=== PATIENT | female | born 1930 | race Caucasian/White ===

== ENCOUNTER → 2016-08-01 | Outpatient (CLI) | payer MEDICARE ==
--- NOTE | 2016-08-02 11:11 | XR ---
EXAMINATION TYPE: XR hand complete LT DATE OF EXAM: 08/01/2016 1:19 PM COMPARISON: NONE HISTORY: Pain and swelling FINDINGS: The osseous structures are intact. Diffuse osteopenia noted with severe arthritic change involving th e first carpal metacarpal joint. Chondrocalcinosis involving the wrist joint. Marked narrowing of the MCP joints of all digits, PIP and DIP joints of all digits with multiple area s of central erosion. IMPRESSION: 1. No definite acute fracture or dislocation if symptoms persist, follow-up study in 7 to 10 days wo uld be suggested. 2. 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
== END | disposition home or self-care (01) ==
LOC: RADXRYALE 12:15
PROVIDERS: ATTEND Family Medicine
DX: M79.642 Pain in left hand (principal)

== ENCOUNTER 2016-08-14 14:14 | Emergency (ER) | payer MEDICARE ==
[2016-08-14 14:25] VITALS: BP 177/62; PULSE 77; RESP 17; TEMP 98.9
[2016-08-14] MEDS ORDERED: SODIUM CHLORIDE 0.9% 500 ML IV ONE (14:58)
[2016-08-14 15:19] LABS: Basophils % (A) 0 %; CH 27.7; CHCM 32.7; Eosinophils # (A) 0.1 k/uL (0-0.7); Eosinophils % (A) 1 %; HCT 34.4 % (34.0-46.0); HDW 2.74; HGB 11.2 gm/dL (11.4-16.0); Luc # (Auto) 0.12; Luc % (Auto) 1; Lymphocytes # (A) 0.9 k/uL (1.0-4.8); Lymphocytes % (A) 8 %; MCH 27.7 pg (25.0-35.0); MCHC 32.5 g/dL (31.0-37.0); MCV 85.3 fL (80.0-100.0); Mean Platelet Volume 7.9; Monocytes # (A) 0.5 k/uL (0-1.0); Monocytes % (A) 5 %; Neutrophils # (A) 9.3 k/uL (1.3-7.7); Neutrophils % (A) 85 %; RBC 4.03 m/uL (3.80-5.40); RDW 13.8 % (11.5-15.5); WBC 10.9 k/uL (3.8-10.6); WBC (Perox) 11.52
--- NOTE | 2016-08-14 15:29 | ED ---
General Adult HPI - General Chief complaint: Fall Stated complaint: Fall, weakness Time Seen by Provider: 08/14/16 14:15 Source: patient, EMS, RN notes reviewed Mode of arrival: EMS Limitations: no limitations - History of Present Illness Initial comments: This is an 85-year-old female presents after a fall last night and this morning. Patient's daughter is present in the room today and states the patient is legally blind and ambulates without a walker. Patient is able to answer questions and denies any dizziness associated with the falls. Patient states she was standing up from sitting both times the falls occurred and she is unsure what caused the fall. Patient denies hitting her head but is unsure. Patient is currently on Plavix. Patient is complaining of an exacerbation of chronic knee pain bilaterally. Patient also complains of increased chronic back pain after the falls. Patient states she landed on her butt both times but denies any change in bowel or bladder function or loss of sensation in the saddle area. Patient's daughter states she has frequent UTIs and the patient is complaining of burning with urination that started today. Patient is on a daily antibiotic for prophylaxis of UTIs. Patient's daughter denies any history of falls. Daughter states the only medication change is an increase of the patient's [place] from 2 to 3 times a day. Patient denies any recent fever, chills, shortness breath, chest pain, abdominal pain, nausea/vomiting/diarrhea, hematuria, headache, or visual changes, or any other complaints. - Related Data Home Medications Medication Instructions Recorded Confirmed Allopurinol [Zyloprim] 100 mg PO DAILY 08/14/16 08/14/16 Chlorpheniramine Maleate 4 mg PO Q4-6H PRN 08/14/16 08/14/16 [Chlor-Trimeton] Ciprofloxacin HCl [Cipro] 500 mg PO DAILY 08/14/16 08/14/16 Clopidogrel [Plavix] 75 mg PO DAILY 08/14/16 08/14/16 Dorzolamide-Timolol 2%/0.5% 1 drop BOTH EYES BID 08/14/16 08/14/16 [dorzolamide-Timolol 2%/0.5%] Famotidine 20 mg PO BID 08/14/16 08/14/16 HYDROcodone/APAP 5-325MG [[place] 1 tab PO TID 08/14/16 08/14/16 5-325] Latanoprost [Xalatan 0.005%] 1 drop BOTH EYES HS 08/14/16 08/14/16 Levothyroxine Sodium [Synthroid] 50 mcg PO DAILY 08/14/16 08/14/16 Pravastatin Sodium [Pravachol] 40 mg PO DAILY 08/14/16 08/14/16 Primidone [Mysoline] 50 mg PO HS 08/14/16 08/14/16 amLODIPine [Norvasc] 5 mg PO DAILY 08/14/16 08/14/16 Previous Rx's Medication Instructions Recorded Nitrofurantoin Monohyd/M-Cryst 100 mg PO Q12HR 7 Days 08/14/16 [Macrobid] Allergies Allergy/AdvReac Type Severity Reaction Status Date / Time cefuroxime [From Ceftin] Allergy Unknown Verified 08/14/16 16:26 clarithromycin [From Biaxin] Allergy Unknown Verified 08/14/16 16:26 sulfamethoxazole Allergy Unknown Verified 08/14/16 16:26 [From Bactrim] trimethoprim [From Bactrim] Allergy Unknown Verified 08/14/16 16:26 Review of Systems ROS Statement: Those systems with pertinent positive or pertinent negative responses have been documented in the HPI. ROS Other: All systems not noted in ROS Statement are negative. Past Medical History Past Medical History: COPD, CVA/TIA, Hyperlipidemia, Hypertension, Thyroid Disorder Additional Past Medical History / Comment(s): legally blind History of Any Multi-Drug Resistant Organisms: None Reported Past Surgical History: Bowel Resection, Hysterectomy Past Psychological History: No Psychological Hx Reported Smoking Status: Never smoker Past Alcohol Use History: None Reported Past Drug Use History: None Reported General Exam - General Exam Comments Initial Comments: General: The patient is awake and alert, in no distress, and does not appear acutely ill. Eye: Patient is legally blind. Pupils are equal, round and reactive to light, extra-ocular movements are intact. No nystagmus. There is normal conjunctiva bilaterally. No signs of icterus. Nose: Nasal turbinates pink and moist Mouth and throat: There are moist mucous membranes and no oral lesions. Neck: The neck is supple, there is no tenderness or JVD. No cervical midline tenderness. Cardiovascular: There is a regular rate and rhythm. No murmur, rub or gallop is appreciated. Respiratory: Lungs are clear to auscultation, respirations are non-labored, breath sounds are equal. No wheezes, stridor, rales, or rhonchi. Gastrointestinal: Mild tenderness to palpation of the lower quadrants. Soft, non-distended, abdomen without masses or organomegaly noted. There is no rebound or guarding present. No CVA tenderness. Bowel sounds are unremarkable. Musculoskeletal: There is tenderness to palpation over the right proximal forearm and right elbow, there is tenderness to palpation over the left mid shaft humerus. There is tenderness to palpation of bilateral knees. There is mild tenderness to the lumbar spine. Full range of motion, Strength 5/5. Sensation intact. Radial pulses and posterior tibial Pulses equal bilaterally 2 +. Neurological: A&O x 3. CN II-XII intact, There are no obvious motor or sensory deficits. Coordination appears grossly intact. Speech is normal. Skin: There is ecchymosis to the lateral aspect of the right elbow. Skin is warm and dry. Psychiatric: Cooperative, appropriate mood & affect, normal judgment. Limitations: no limitations Course Vital Signs 08/14/16 14:17 Temperature 98.9 F Pulse Rate 77 Respiratory 17 Rate Blood Pressure 177/62 O2 Sat by Pulse 94 L Oximetry EKG Findings - EKG Comments: EKG Findings:: An EKG was done at 1515 showing normal sinus rhythm with a ventricular rate of 73, AL interval of 164, QRS duration of 88, QTc of 416. No acute ST changes. Medical Decision Making - Medical Decision Making This is an 85-year-old female who presents after a fall. On physical exam There is tenderness to palpation over the right proximal forearm and right elbow , there is tenderness to palpation over the left mid shaft humerus. There is tenderness to palpation of bilateral knees. There is mild tenderness to the lumbar spine. Full range of motion, Strength 5/5. Sensation intact. Radial pulses and posterior tibial Pulses equal bilaterally 2+. Patient is neurologically intact and answering all questions appropriately. Basic labs were drawn and reviewed. Patient was given IV fluids. UA was done showing evidence for UTI and patient is symptomatic. An EKG was done at 1515 showing normal sinus rhythm with a ventricular rate of 73, AL interval of 164, QRS duration of 88, QTc of 416. No acute ST changes. Computed tomography scan of the brain was done and reviewed showing: No acute intracranial abnormality seen. Stable moderate cerebral atrophy. Severe confluent changes of chronic small vessel ischemic disease with old left parietal lobe infarct. A left frontal lobe infarct is also chronic but new from 2015. Reported by Dr. Dey. X-rays of the right elbow, left humerus, bilateral knees and lumbar spine were done and reviewed showing:#1 lumbar spine: Osteopenia limiting evaluation. There is also a degenerated levoconvex scoliosis. Vertebral compression deformity of L3 is age indeterminant (approximately 30% overall height loss) but could be acute in the setting of patient's injury. Correlate for focal pain at this level. #2 knees: Diffuse osteopenia limiting the evaluation. There is tricompartmental osteoarthrosis and meniscal chondrocalcinosis. Small right greater than the left knee joint effusions are nonspecific. No displaced fracture seen. If concern for an occult injury or internal derangement, MRI can be considered. Reports read by Dr. Dey. #1 left humerus: No acute osseous abnormality seen. #2 right elbow suboptimal positioning on both the AP and lateral views. No acute osseous abnormality seen within this limitation. Repeat imaging if persistent concern for underlying injury. Reports her to Dr. Dey. I reexamined the patient and patient is having continued mild abdominal pain to the lower quadrants with palpation. CT of the abdomen and pelvis without contrast was done and reviewed showing: There is colonic diverticulosis without evidence of diverticulitis. Renal cortical cysts. Mild renal atrophy. Atherosclerotic vascular disease. Patchy atelectasis at the lung bases. Mild L3 compression fracture of uncertain age. Mild thoracolumbar levoscoliosis. Report by Dr. Wyatt. Patient is having no pain to the lumbar spine upon reevaluation and has a history of injury to the back any years ago. I discussed the results with patient and family. I discussed occult fracture. Patient will be treated for urinary tract infection with Macrobid as she is having burning with urination. Patient was able to ambulate in the EC without difficulty. I discussed use of a walker at home and patient has a walker at home. I discussed return parameters. I discussed the patient is to follow-up with her primary care physician tomorrow or return to the EC for any worsening symptoms or for any further concerns. Patient's family was receptive to this plan and patient will be discharged home. Discussed this case with attending physician Dr. Minaya who agrees with plan as stated above. - Lab Data Result diagrams: 08/14/16 15:07 08/14/16 15:07 Lab Results 08/14/16 08/14/16 08/14/16 Range/Units 15:07 15:07 15:07 WBC 10.9 H (3.8-10.6) k/uL RBC 4.03 (3.80-5.40) m/uL Hgb 11.2 L (11.4-16.0) gm/dL Hct 34.4 (34.0-46.0) % MCV 85.3 (80.0-100.0) fL MCH 27.7 (25.0-35.0) pg MCHC 32.5 (31.0-37.0) g/dL RDW 13.8 (11.5-15.5) % Plt Count 182 (150-450) k/uL Neutrophils % 85 % Lymphocytes % 8 % Monocytes % 5 % Eosinophils % 1 % Basophils % 0 % Neutrophils # 9.3 H (1.3-7.7) k/uL Lymphocytes # 0.9 L (1.0-4.8) k/uL Monocytes # 0.5 (0-1.0) k/uL Eosinophils # 0.1 (0-0.7) k/uL Basophils # 0.0 (0-0.2) k/uL PT (9.0-12.0) sec INR (<1.1) APTT (22.0-30.0) sec Sodium 137 (137-145) mmol/L Potassium 5.2 H (3.5-5.1) mmol/L Chloride 106 (98-107) mmol/L Carbon Dioxide 17 L (22-30) mmol/L Anion Gap 14 mmol/L BUN 35 H (7-17) mg/dL Creatinine 1.73 H (0.52-1.04) mg/dL Est GFR (MDRD) Af Amer 34 (>60 ml/min/1.73 sqM) Est GFR (MDRD) Non-Af 28 (>60 ml/min/1.73 sqM) Glucose 88 (74-99) mg/dL Calcium 8.7 (8.4-10.2) mg/dL Total Bilirubin 0.8 (0.2-1.3) mg/dL AST 24 (14-36) U/L ALT 21 (9-52) U/L Alkaline Phosphatase 68 (38-126) U/L Total Creatine Kinase 27 L (30-135) U/L CK-MB (CK-2) 1.0 (0.0-2.4) ng/mL CK-MB (CK-2) Rel Index 3.7 Troponin I (0.000-0.034) ng/mL Total Protein 6.7 (6.3-8.2) g/dL Albumin 3.4 L (3.5-5.0) g/dL Urine Color Urine Appearance (Clear) Urine pH (5.0-8.0) Ur Specific [place] (1.001-1.035) Urine Protein (Negative) Urine Glucose (UA) (Negative) Urine Ketones (Negative) Urine Blood (Negative) Urine Nitrate (Negative) Urine Bilirubin (Negative) Urine Urobilinogen (<2.0) mg/dL Ur Leukocyte Esterase (Negative) Urine RBC (0-5) /hpf Urine WBC (0-5) /hpf Ur Squamous Epith Cells (0-4) /hpf Urine Mucus (None) /hpf 08/14/16 08/14/16 08/14/16 Range/Units 15:07 15:07 15:33 WBC (3.8-10.6) k/uL RBC (3.80-5.40) m/uL Hgb (11.4-16.0) gm/dL Hct (34.0-46.0) % MCV (80.0-100.0) fL MCH (25.0-35.0) pg MCHC (31.0-37.0) g/dL RDW (11.5-15.5) % Plt Count (150-450) k/uL Neutrophils % % Lymphocytes % % Monocytes % % Eosinophils % % Basophils % % Neutrophils # (1.3-7.7) k/uL Lymphocytes # (1.0-4.8) k/uL Monocytes # (0-1.0) k/uL Eosinophils # (0-0.7) k/uL Basophils # (0-0.2) k/uL PT 10.5 (9.0-12.0) sec INR 1.0 (<1.1) APTT 23.1 (22.0-30.0) sec Sodium (137-145) mmol/L Potassium (3.5-5.1) mmol/L Chloride (98-107) mmol/L Carbon Dioxide (22-30) mmol/L Anion Gap mmol/L BUN (7-17) mg/dL Creatinine (0.52-1.04) mg/dL Est GFR (MDRD) Af Amer (>60 ml/min/1.73 sqM) Est GFR (MDRD) Non-Af (>60 ml/min/1.73 sqM) Glucose (74-99) mg/dL Calcium (8.4-10.2) mg/dL Total Bilirubin (0.2-1.3) mg/dL AST (14-36) U/L ALT (9-52) U/L Alkaline Phosphatase (38-126) U/L Total Creatine Kinase (30-135) U/L CK-MB (CK-2) (0.0-2.4) ng/mL CK-MB (CK-2) Rel Index Troponin I <0.012 (0.000-0.034) ng/mL Total Protein (6.3-8.2) g/dL Albumin (3.5-5.0) g/dL Urine Color Yellow Urine Appearance Clear (Clear) Urine pH 6.5 (5.0-8.0) Ur Specific [place] 1.011 (1.001-1.035) Urine Protein Trace H (Negative) Urine Glucose (UA) Negative (Negative) Urine Ketones Negative (Negative) Urine Blood Moderate H (Negative) Urine Nitrate Negative (Negative) Urine Bilirubin Negative (Negative) Urine Urobilinogen <2.0 (<2.0) mg/dL Ur Leukocyte Esterase Trace H (Negative) Urine RBC >182 H (0-5) /hpf Urine WBC 18 H (0-5) /hpf Ur Squamous Epith Cells 1 (0-4) /hpf Urine Mucus Rare H (None) /hpf Disposition Clinical Impression: Urinary tract infection, Fall Disposition: HOME SELF-CARE Condition: Good Instructions: Fall Prevention for Older Adults (ED), Urinary Tract Infection in Women (ED) Additional Instructions: Please finish the entire course of antibiotics. Please be sure the patient drinks plenty of fluids. If symptoms do not improve in the next 7 days repeat x- rays may be needed to rule out occult fracture. Please follow-up with primary care physician tomorrow or return to the EC for any worsening symptoms or for any further concerns. Prescriptions: Nitrofurantoin Monohyd/M-Cryst [Macrobid] 100 mg PO Q12HR 7 Days Referrals: Prakash Adkins DO [Primary Care Provider] - 1-2 days Time of Disposition: 18:35
[2016-08-14 15:33] LABS: Partial Thromboplastin Time 23.1 sec (22.0-30.0); Prothrombin Time 10.5 sec (9.0-12.0)
[2016-08-14 15:36] LABS: Calcium 8.7 mg/dL (8.4-10.2); Potassium 5.2 mmol/L (3.5-5.1); Total Bilirubin 0.8 mg/dL (0.2-1.3); Total Protein 6.7 g/dL (6.3-8.2)
[2016-08-14 15:51] LABS: Appearance,Urine Clear (Clear); Bilirubin,Urine Negative (Negative); Glucose,Urine (UA) Negative (Negative); Ketones,Urine Negative (Negative); Leukocyte Esterase,Urine Trace (Negative); Mucus,Urine Rare /hpf; Nitrite,Urine Negative (Negative); PH, Urine 6.5 (5.0-8.0); Particle Count 1562; Protein,Urine Trace (Negative); RBC,Urine >182 /hpf (0-5); Specific Gravity,Urine 1.011 (1.001-1.035); Squamous Epithelial Cell,Urine 1 /hpf (0-4); UA Billing (MACRO vs. MICRO) MICRO; Urobilinogen,Urine <2.0 mg/dL (<2.0); WBC,Urine 18 /hpf (0-5)
--- NOTE | 2016-08-14 16:35 | XR ---
EXAMINATION TYPE: 3 views lumbar spine. 3 views each knee. DATE OF EXAM: 08/14/2016 4:12 PM COMPARISON: NONE HISTORY: 85-year-old female generalized low back pain after fall and bilateral knee pain. FINDINGS: Lumbar spine: Degenerated levoconvex scoliosis of the lumbar spine. There is osteopenia limiting evaluation. There appears to be a vertebral compression deformity of L3 with approximately 30% overall height los s. There is slight retropulsion into the spinal canal. Trace grade 1 anterolisthesis at L4-L5. Hypert rophic facet arthropathy throughout. Dense atherosclerotic calcifications within the aorta. Knees: Diffuse osteopenia. Tricompartmental degenerative spurring with meniscal chondrocalcinosis. Extensor mechanisms appear intact. There is suggestion of a small right knee joint effusion. Trace left knee j oint effusion also suggested. No acute fracture or dislocation seen. Diffuse vascular calcifications. IMPRESSION: 1. Lumbar spine: Marked osteopenia limiting the evaluation. There is also a degenerated levoconvex sc oliosis. Vertebral compression deformity of L3 is age indeterminate (approximately 30% overall height loss) but could be acute in the setting of patient's injury. Correlate for focal pain at this level. 2. Knees: Diffuse osteopenia limiting the evaluation. There is tricompartmental osteoarthrosis and me niscal chondrocalcinosis. Small right greater than the left knee joint effusions are nonspecific. No displaced fracture seen. If concern for an occult injury or internal derangement, MRI can be consider ed.
--- NOTE | 2016-08-14 16:37 | XR ---
EXAMINATION TYPE: 2 views left humerus. 3 views right elbow. DATE OF EXAM: 08/14/2016 4:14 PM COMPARISON: NONE HISTORY: 85-year-old female with generalized pain after multiple falls FINDINGS: Left humerus: Bony irregularity at the greater tuberosity compatible with chronic rotator cuff tendinopathy. There is degenerative change at the AC joint and some synovial-based calcifications. No acute fracture. Right elbow: Suboptimal AP view. Bony irregularity at the lateral epicondyles suggest chronic extensor tendinosis. Suboptimal lateral view for assessment of posterior joint effusion. No acute fracture or dislocation seen. IMPRESSION: 1. Left humerus: No acute osseous abnormality seen. 2. Right elbow: Suboptimal positioning on both the AP and lateral views. No acute osseous abnormality seen within this limitation. Repeat imaging if persistent concern for underlying injury.
--- NOTE | 2016-08-14 16:54 | CT ---
EXAMINATION TYPE: CT brain wo con DATE OF EXAM: 08/14/2016 4:37 PM COMPARISON: 05/09/2015 HISTORY: 85-year-old female with a pain after recent fall and injuries. TECHNIQUE: Examination was done in axial plane without intravenous contrast. Coronal and sagittal r econstructions performed. CT DLP: 975.6 mGycm Automated exposure control for dose reduction was used. FINDINGS: There is no evidence of acute intracranial hemorrhage, acute ischemic changes, mass, mass-effect, or extra-axial fluid collection. There is no effacement of cerebral sulci or basal subarachnoid cister ns. There is no midline shift. Cutler-white matter distinction is preserved. There is mild generalized supratentorial volume loss and moderate central cerebral atrophy. Redemonst rated previous left parietal infarct. A posterior left frontal lobe infarct is new from 2014. Conflue nt white matter hypodensities in both cerebral hemispheres. Partially empty sella incidentally noted . Visualized paranasal sinuses and mastoid air cells are well pneumatized. No calvarial fracture. IMPRESSION: No acute intracranial abnormality seen. Stable moderate cerebral atrophy. Severe confluent changes of chronic small vessel ischemic disease with old left parietal lobe infarct. A left frontal lobe infar ct is also chronic but new from 2014.
--- NOTE | 2016-08-14 18:04 | CT ---
EXAMINATION TYPE: CT abdomen pelvis wo con DATE OF EXAM: 08/14/2016 5:52 PM COMPARISON: NONE HISTORY: Lower back pain after fall. CT DLP: 822.00 mGycm Automated exposure control for dose reduction was used. TECHNIQUE: Helical acquisition of images was performed from the lung bases through the pelvis. FINDINGS: There is some patchy linear density at the lung bases. This is consistent with subsegmental atelectas is. There is no pleural effusion. Heart is enlarged. There is no pericardial effusion. Liver shows no focal defect. Bile ducts are not dilated. I see no gallbladder wall thickening. Spleen and pancreas appear normal. There is athetoid vascular calcification. There is no adrenal mass. There is a 3 cm cortical cyst on the posterior right kidney. There is no de finite hydronephrosis. Ureters are not dilated. There is mild renal cortical thinning. There is a 2.5 cm cortical cyst on the medial right kidney. There is no retroperitoneal adenopathy. There is no asc ites. There are numerous diverticula in the left colon. There is no sign of a bowel obstruction. Blad navi distends smoothly. There is no pelvic mass. There is 15% anterior wedging of L3 vertebral body. IMPRESSION: THERE IS COLONIC DIVERTICULOSIS WITHOUT EVIDENCE OF DIVERTICULITIS. RENAL CORTICAL CYSTS. MILD RENAL ATROPHY. ATHEROSCLEROTIC VASCULAR DISEASE. PATCHY ATELECTASIS AT THE LUNG BASES. MILD L3 COMPRESSION FRACTURE OF UNCERTAIN AGE. MILD THORACOLUMBAR LEVOSCOLIOSIS.
[2016-08-14] MEDS ORDERED: HYDROcodone/APAP 5-325MG 1 EACH TAB PO STA (18:35)
== END 2016-08-14 18:52 | disposition home or self-care (01) ==
LOC: EC 14:14
DX: N39.0 Urinary tract infection, site not specified (principal); G89.29 Other chronic pain; M25.562 Pain in left knee; M25.561 Pain in right knee; E07.9 Disorder of thyroid, unspecified; I10 Essential (primary) hypertension; E78.5 Hyperlipidemia, unspecified; M48.56XA Collapsed vertebra, not elsewhere classified, lumbar region, initial encounter for fracture; H54.8 Legal blindness, as defined in USA; Z86.73 Personal history of transient ischemic attack (TIA), and cerebral infarction without residual deficits; Z87.440 Personal history of urinary (tract) infections; Z79.02 Long term (current) use of antithrombotics/antiplatelets; Z79.01 Long term (current) use of anticoagulants; Z79.2 Long term (current) use of antibiotics; Z79.891 Long term (current) use of opiate analgesic; Z79.899 Other long term (current) drug therapy; Z88.1 Allergy status to other antibiotic agents; Z88.2 Allergy status to sulfonamides
CPT/HCPCS: 36415; 70450; 72100; 74176; 80053; 81001; 82550; 82553; 84484; 85025; 85610; 85730; 87086; 93005; 96360; 99285

== ENCOUNTER → 2017-03-29 | Outpatient (CLI) | payer MEDICARE ==
--- NOTE | 2017-03-29 12:22 | XR ---
Thoracic spine HISTORY: Pain 2 views of the thoracic spine Bone mineralization is reduced which may limit sensitivity. There is multilevel spondylosis with asso ciated loss of disc height especially at the intervertebral levels of the midthoracic spine. Frontal view is rotated, there may be spinal curvature. Thoracic vertebral bodies show preserved height and a lignment. There is a kyphosis. IMPRESSION: Osteoporosis, degenerative disc disease, rotated exam
== END | disposition home or self-care (01) ==
LOC: RADXRYALE 11:48
PROVIDERS: ATTEND Family Medicine
DX: M51.34 Other intervertebral disc degeneration, thoracic region (principal); M81.8 Other osteoporosis without current pathological fracture
CPT/HCPCS: 72070

== ENCOUNTER 2018-04-10 20:07 | Inpatient (IN) | payer MEDICARE ==
[2018-04-10] MEDS ORDERED: ONDANSETRON 4 MG/2 ML VIAL IVP STA (20:43)
[2018-04-10] MEDS ORDERED: MORPHINE SULFATE 2 MG/ML SYRINGE IVP STA (20:43)
[2018-04-10] MEDS ORDERED: SODIUM CHLORIDE 0.9% 500 ML 500 ML IV STA (20:43)
--- NOTE | 2018-04-10 20:49 | ED ---
Fall HPI - General Chief Complaint: Fall Stated Complaint: weakness Time Seen by Provider: 04/10/18 20:30 Source: EMS Mode of arrival: EMS - History of Present Illness Initial Comments: 87-year-old female patient presents to the emergency department today with daughter for evaluation after experiencing a fall at home. Patient has history of dementia and daughter provides most of history. Daughter reports that patient has been falling more frequently. States that she is not eating or drinking as much. States that she has lost a lot of weight. After today's fall patient was unable to stand due to increased low back pain. Patient is also reporting neck pain. She denies any pain radiation down her arms or legs. Denies any numbness or tingling to her extremities. She denies any current headache. 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 Patient denies any nausea, vomiting, abdominal pain, constipation , or diarrhea. Patient denies any recent rash, fever, chills, shortness breath , chest pain, constipation, back pain, numbness, tingling, dizziness, weakness, headache, visual changes, or any other complaints. Patient was in to see her primary care physician a few days ago and diagnosed with a urinary tract infection for which they started antibiotics. - Related Data Home Medications Medication Instructions Recorded Confirmed Allopurinol [Zyloprim] 100 mg PO DAILY 08/14/16 04/10/18 Clopidogrel [Plavix] 75 mg PO DAILY 08/14/16 04/10/18 Dorzolamide-Timol 2.23%/0.68% 1 drop BOTH EYES BID 08/14/16 04/10/18 [dorzolamide-Timolol 2%/0.5%] Famotidine 20 mg PO BID 08/14/16 04/10/18 HYDROcodone/APAP 5-325MG [[place] 1 tab PO BID 08/14/16 04/10/18 5-325] Latanoprost [Xalatan 0.005%] 1 drop BOTH EYES HS 08/14/16 04/10/18 Levothyroxine Sodium [Synthroid] 50 mcg PO DAILY 08/14/16 04/10/18 Pravastatin Sodium [Pravachol] 40 mg PO DAILY 08/14/16 04/10/18 Primidone [Mysoline] 50 mg PO HS 08/14/16 04/10/18 amLODIPine [Norvasc] 5 mg PO DAILY 08/14/16 04/10/18 Amoxic-Pot Clav 500-125 mg 1 tab PO Q12HR 04/10/18 04/10/18 [Augmentin 500-125 mg] Propylene Glycol [Systane Complete] 1 drop BOTH EYES DAILY PRN 04/10/18 04/10/18 Allergies Allergy/AdvReac Type Severity Reaction Status Date / Time cefuroxime [From Ceftin] Allergy Unknown Verified 04/10/18 20:34 clarithromycin [From Biaxin] Allergy Unknown Verified 04/10/18 20:34 sulfamethoxazole Allergy Unknown Verified 04/10/18 20:34 [From Bactrim] trimethoprim [From Bactrim] Allergy Unknown Verified 04/10/18 20:34 Review of Systems ROS Statement: Those systems with pertinent positive or pertinent negative responses have been documented in the HPI. ROS Other: All systems not noted in ROS Statement are negative. Past Medical History Past Medical History: COPD, CVA/TIA, Hyperlipidemia, Hypertension, Thyroid Disorder Additional Past Medical History / Comment(s): legally blind History of Any Multi-Drug Resistant Organisms: None Reported Past Surgical History: Bowel Resection, Hysterectomy Past Psychological History: No Psychological Hx Reported Smoking Status: Never smoker Past Alcohol Use History: None Reported Past Drug Use History: None Reported General Exam Limitations: no limitations General appearance: alert, in no apparent distress, other (This is a well- developed, well-nourished elderly female patient in no acute distress. Vital signs upon presentation are temperature 97.6F, pulse 105, respirations 16, blood pressure 166/91, pulse ox 99% on room air.) Eye exam: Present: normal appearance, PERRL. Absent: scleral icterus, conjunctival injection, periorbital swelling ENT exam: Present: normal exam, normal oropharynx, mucous membranes moist Neck exam: Present: normal inspection, other (Patient has mid line cervical tenderness over C4-5.). Absent: tenderness, meningismus, full ROM (C-collar in place), lymphadenopathy Respiratory exam: Present: normal lung sounds bilaterally. Absent: respiratory distress, wheezes, rales, rhonchi, stridor Cardiovascular Exam: Present: regular rate, normal rhythm, normal heart sounds. Absent: systolic murmur, diastolic murmur, rubs, gallop, clicks GI/Abdominal exam: Present: soft, normal bowel sounds. Absent: distended, tenderness, guarding, rebound, rigid Extremities exam: Present: normal inspection, full ROM, tenderness (Left lateral hip tenderness. Mid low back pain over the lumbar spine. ), normal capillary refill, other (Skin to the upper and lower extremities is pink, warm, and dry. Cap refills less than 3 seconds. Radial pulses 2+ and equal bilaterally. Pedal pulses 2+ and equal bilaterally. ). Absent: pedal edema, joint swelling, calf tenderness Neurological exam: Present: alert, oriented X3, CN II-XII intact Psychiatric exam: Present: normal affect, normal mood Skin exam: Present: warm, dry, intact, normal color. Absent: rash Course Vital Signs 04/10/18 04/10/18 04/10/18 20:18 21:34 22:30 Temperature 97.6 F Pulse Rate 105 H 98 105 H Respiratory 16 Rate Blood Pressure 166/91 148/82 O2 Sat by Pulse 99 98 Oximetry Medical Decision Making - Medical Decision Making 87-year-old female patient presents to emergency department today for evaluation of frequent falls and weakness. Daughter also reports patient was complaining of chest pain 2 days ago. Patient denies chest pain today. Physical examination does reveal tenderness over the left hip, tenderness over the lumbar spine, and tenderness over the mid cervical spine. CT brain and C- spine were performed showed no evidence of acute abnormalities. X-ray of the left hip and pelvis were obtained and showed no acute fractures or dislocations. X-ray of the lumbar spine did show evidence of old compression fractures however there was an 25% increase of the wedging of the L2 vertebra. Patient did exhibit normal neurovascular status to the lower extremities. Denied any radiating pain down the legs, loss of bowel or bladder control, or numbness or tingling to the lower extremities. Labs reviewed and did reveal an elevated BUN and creatinine which does seem to be chronic for the patient. Troponin was elevated at 0.052, urinalysis shows evidence of urinary tract infection currently being treated with oral antibiotics. Patient is afebrile, vital signs stable. EKG showed normal sinus rhythm. We will keep patient for possible NSTEMI, dehydration, and weakness. We will start heparin drip and maintain IV fluids. We will continue patient's augmentin for UTI, continue home pain medication. - Lab Data Result diagrams: 04/10/18 21:31 04/10/18 21:31 Lab Results 04/10/18 04/10/18 04/10/18 Range/Units 21:31 21:31 21:31 WBC 10.3 (3.8-10.6) k/uL RBC 4.22 (3.80-5.40) m/uL Hgb 12.0 (11.4-16.0) gm/dL Hct 37.7 (34.0-46.0) % MCV 89.2 (80.0-100.0) fL MCH 28.4 (25.0-35.0) pg MCHC 31.9 (31.0-37.0) g/dL RDW 14.3 (11.5-15.5) % Plt Count 196 (150-450) k/uL Neutrophils % 82 % Lymphocytes % 11 % Monocytes % 5 % Eosinophils % 0 % Basophils % 1 % Neutrophils # 8.5 H (1.3-7.7) k/uL Lymphocytes # 1.2 (1.0-4.8) k/uL Monocytes # 0.5 (0-1.0) k/uL Eosinophils # 0.0 (0-0.7) k/uL Basophils # 0.1 (0-0.2) k/uL PT (9.0-12.0) sec INR (<1.2) APTT (22.0-30.0) sec Sodium 138 (137-145) mmol/L Potassium 5.0 (3.5-5.1) mmol/L Chloride 111 H (98-107) mmol/L Carbon Dioxide 17 L (22-30) mmol/L Anion Gap 10 mmol/L BUN 28 H (7-17) mg/dL Creatinine 1.46 H (0.52-1.04) mg/dL Est GFR (CKD-EPI)AfAm 38 (>60 ml/min/1.73 sqM) Est GFR (CKD-EPI)NonAf 33 (>60 ml/min/1.73 sqM) Glucose 110 H (74-99) mg/dL Calcium 9.1 (8.4-10.2) mg/dL Total Bilirubin 0.5 (0.2-1.3) mg/dL AST 22 (14-36) U/L ALT 16 (9-52) U/L Alkaline Phosphatase 72 (38-126) U/L Total Creatine Kinase 52 (30-135) U/L CK-MB (CK-2) 1.6 (0.0-2.4) ng/mL CK-MB (CK-2) Rel Index 3.1 Troponin I 0.052 H* (0.000-0.034) ng/mL Total Protein 7.3 (6.3-8.2) g/dL Albumin 3.9 (3.5-5.0) g/dL Urine Color Urine Appearance (Clear) Urine pH (5.0-8.0) Ur Specific [place] (1.001-1.035) Urine Protein (Negative) Urine Glucose (UA) (Negative) Urine Ketones (Negative) Urine Blood (Negative) Urine Nitrite (Negative) Urine Bilirubin (Negative) Urine Urobilinogen (<2.0) mg/dL Ur Leukocyte Esterase (Negative) Urine RBC (0-5) /hpf Urine WBC (0-5) /hpf Ur Squamous Epith Cells (0-4) /hpf Urine Mucus (None) /hpf 04/10/18 04/10/18 Range/Units 21:31 22:35 WBC (3.8-10.6) k/uL RBC (3.80-5.40) m/uL Hgb (11.4-16.0) gm/dL Hct (34.0-46.0) % MCV (80.0-100.0) fL MCH (25.0-35.0) pg MCHC (31.0-37.0) g/dL RDW (11.5-15.5) % Plt Count (150-450) k/uL Neutrophils % % Lymphocytes % % Monocytes % % Eosinophils % % Basophils % % Neutrophils # (1.3-7.7) k/uL Lymphocytes # (1.0-4.8) k/uL Monocytes # (0-1.0) k/uL Eosinophils # (0-0.7) k/uL Basophils # (0-0.2) k/uL PT 10.5 (9.0-12.0) sec INR 1.1 (<1.2) APTT 24.4 (22.0-30.0) sec Sodium (137-145) mmol/L Potassium (3.5-5.1) mmol/L Chloride (98-107) mmol/L Carbon Dioxide (22-30) mmol/L Anion Gap mmol/L BUN (7-17) mg/dL Creatinine (0.52-1.04) mg/dL Est GFR (CKD-EPI)AfAm (>60 ml/min/1.73 sqM) Est GFR (CKD-EPI)NonAf (>60 ml/min/1.73 sqM) Glucose (74-99) mg/dL Calcium (8.4-10.2) mg/dL Total Bilirubin (0.2-1.3) mg/dL AST (14-36) U/L ALT (9-52) U/L Alkaline Phosphatase (38-126) U/L Total Creatine Kinase (30-135) U/L CK-MB (CK-2) (0.0-2.4) ng/mL CK-MB (CK-2) Rel Index Troponin I (0.000-0.034) ng/mL Total Protein (6.3-8.2) g/dL Albumin (3.5-5.0) g/dL Urine Color Light Yellow Urine Appearance Clear (Clear) Urine pH 5.5 (5.0-8.0) Ur Specific [place] 1.009 (1.001-1.035) Urine Protein Negative (Negative) Urine Glucose (UA) Negative (Negative) Urine Ketones Negative (Negative) Urine Blood Moderate H (Negative) Urine Nitrite Negative (Negative) Urine Bilirubin Negative (Negative) Urine Urobilinogen <2.0 (<2.0) mg/dL Ur Leukocyte Esterase Small H (Negative) Urine RBC 94 H (0-5) /hpf Urine WBC 7 H (0-5) /hpf Ur Squamous Epith Cells <1 (0-4) /hpf Urine Mucus Rare H (None) /hpf - EKG Data -: EKG Interpreted by Me EKG Comments: EKG obtained at 2118 shows normal sinus rhythm with a ventricular rate of 96, TN interval 126, QRS duration 178, QT 342, QTc 432. No evidence of ST elevation or depression - Radiology Data Radiology results: report reviewed, image reviewed 5 views of the lumbosacral spine were obtained. There is thoracic or lumbar levoscoliosis. Abdominal aorta is atheromatous. There is generalized osteopenia. There is loss of height of L3 and L2 vertebra 25%. Posterior elements are intact. Sacroiliac joints are intact. Impression by Dr. Wyatt shows significant osteopenia. There is old L3 compression fracture unchanged. There is progression of the compression fracture of L2 of 25% compared to old exam. Single AP view of the pelvis and 2 views of the left hip are obtained. The pelvic ring is intact rate is osteopenia. Proximal left femur and hip joint appear intact. There is mild vascular calcification. Sacroiliac joints appear intact. Impression by Dr. Wyatt shows no acute abnormality of the pelvis and left hip. CT brain and C-spine are obtained. There is cerebral cortical atrophy. No mass effect or midline shift. There is no sign of intracranial hemorrhage. There is patchy hypodensity in the. Ventricular white matter. There is old left posterior parietal lobe 3 cm cortical infarct. The calvarium is intact. Cervical vertebra abnormal spacing alignment. Posterior elements are intact. There is minor facet arthropathy. Physical base is intact. There is no evidence of cervical spine fracture. Impression by Dr. Wyatt shows cerebral atrophy and chronic small vessel ischemia. Old left parietal cortical infarct. No change. Negative computed tomography scan of the cervical spine. No fracture. Two-view x-ray of the chest is obtained. There is mild linear density in the left lower lobe. The other lung ye are clear. Thoracic aorta is atheromatous. Heart size is normal. There is no pleural effusion. There is no heart failure. There is osteopenia. Impression by Dr. Wyatt shows scarring and subsegmental atelectasis in the left lower lobe. No heart failure. Disposition Clinical Impression: Weakness, Dehydration, Elevated troponin, Compression fracture of L2 Disposition: ADMITTED IP TO THIS [facility] Condition: Serious Decision to Admit Reason: Admit from EC Decision Date: 04/11/18 Decision Time: 01:19
[2018-04-10 22:01] LABS: Basophils # (A) 0.1 k/uL (0-0.2); Basophils % (A) 1 %; Eosinophils % (A) 0 %; HCT 37.7 % (34.0-46.0); Lymphocytes # (A) 1.2 k/uL (1.0-4.8); Lymphocytes % (A) 11 %; MCH 28.4 pg (25.0-35.0); MCHC 31.9 g/dL (31.0-37.0); MCV 89.2 fL (80.0-100.0); Mean Platelet Volume 7.2; Monocytes # (A) 0.5 k/uL (0-1.0); Monocytes % (A) 5 %; Neutrophils # (A) 8.5 k/uL (1.3-7.7); Neutrophils % (A) 82 %; Platelet Count 196 k/uL (150-450); RBC 4.22 m/uL (3.80-5.40); RDW 14.3 % (11.5-15.5); WBC 10.3 k/uL (3.8-10.6)
[2018-04-10 22:10] LABS: INR 1.1 (<1.2); Partial Thromboplastin Time 24.4 sec (22.0-30.0); Prothrombin Time 10.5 sec (9.0-12.0)
[2018-04-10 22:11] LABS: Albumin 3.9 g/dL (3.5-5.0); Calcium 9.1 mg/dL (8.4-10.2); Total Bilirubin 0.5 mg/dL (0.2-1.3); Total Protein 7.3 g/dL (6.3-8.2)
[2018-04-10 22:30] LABS: Creatine Kinase MB 1.6 ng/mL (0.0-2.4)
[2018-04-10 22:32] LABS: Troponin I 0.052 ng/mL (0.000-0.034)
--- NOTE | 2018-04-10 22:46 | CT ---
EXAMINATION TYPE: CT brain erick badillo DATE OF EXAM: 04/10/2018 COMPARISON: CT brain 08/14/2016 HISTORY: Fall. CT DLP: 1010.5 mGycm Automated exposure control for dose reduction was used. TECHNIQUE: CT scan of the head and cervical spine are performed without contrast. FINDINGS: There is cerebral cortical atrophy. There is no mass effect nor midline shift. There is n o sign of intracranial hemorrhage. There is patchy hypodensity in the periventricular white matter. T here is old left posterior parietal lobe 3 cm cortical infarct. The calvarium is intact. The cervical vertebra have normal spacing and alignment. Posterior elements are intact. There is armin r facet arthropathy. The skull base is intact. There is no evidence of cervical spine fracture. IMPRESSION: Cerebral atrophy and chronic small vessel ischemia. Old left parietal cortical infarct. No change. Negative CT scan cervical spine. No fracture.
[2018-04-10 22:54] LABS: Appearance,Urine Clear (Clear); Bilirubin,Urine Negative (Negative); Blood,Urine Moderate (Negative); Color,Urine Light Yellow; Glucose,Urine (UA) Negative (Negative); Ketones,Urine Negative (Negative); Leukocyte Esterase,Urine Small (Negative); Mucus,Urine Rare /hpf; Nitrite,Urine Negative (Negative); PH, Urine 5.5 (5.0-8.0); Protein,Urine Negative (Negative); RBC,Urine 94 /hpf (0-5); Specific Gravity,Urine 1.009 (1.001-1.035); Squamous Epithelial Cell,Urine <1 /hpf (0-4); Urobilinogen,Urine <2.0 mg/dL (<2.0); WBC,Urine 7 /hpf (0-5)
--- NOTE | 2018-04-10 23:27 | XR ---
EXAMINATION TYPE: XR chest 2V DATE OF EXAM: 04/10/2018 COMPARISON: NONE HISTORY: Weakness. Falls. TECHNIQUE: Frontal and lateral views of the chest are obtained. FINDINGS: There is mild linear density in the left lower lobe. The other lung ye are clear. Thor acic aorta is atheromatous. Heart size is normal. There is no pleural effusion. There is no heart gloria lure. There is osteopenia. IMPRESSION: There is scarring and subsegmental atelectasis in the left lower lobe. No heart failure.
--- NOTE | 2018-04-10 23:28 | XR ---
EXAMINATION TYPE: XR Hip LT and AP Pelvis DATE OF EXAM: 04/10/2018 COMPARISON: NONE HISTORY: Left hip pain TECHNIQUE: A single AP view of the pelvis is obtained. Two views of the left hip are obtained. FINDINGS: The pelvic ring is intact. There is osteopenia. Proximal left femur and hip joint appear in tact. There is mild vascular calcification. Sacroiliac joints appear intact. IMPRESSION: No acute abnormality of the pelvis and left hip.
--- NOTE | 2018-04-10 23:32 | XR ---
EXAMINATION TYPE: XR lumbosacral spine min 4V DATE OF EXAM: 04/10/2018 COMPARISON: 08/14/2016 HISTORY: Fall. Back pain TECHNIQUE: 5 views FINDINGS: There is thoracolumbar levoscoliosis. Abdominal aorta is atheromatous. There is generalized osteopenia. There is loss of height of L3 and L2 vertebra up to 25%. Posterior elements are intact. Sacroiliac joints are intact. IMPRESSION: Significant osteopenia. There is old L3 compression fracture unchanged. There is progress ion of the compression fracture of L2 of 25% compared to old exam.
[2018-04-11] MEDS ORDERED: HEPARIN SODIUM,PORCINE 5,000 UNIT/ML 1 ML VIAL IV ONE (00:26)
[2018-04-11] MEDS ORDERED: NITROGLYCERIN SL TABS 0.4 MG TAB SUBLINGUAL PRN (00:26)
[2018-04-11] MEDS: SODIUM CHLORIDE 0.9% 1,000 ML IV SCH ×2 (01:47→15:21)
[2018-04-11] MEDS: HEPARIN SOD,PORK IN 0.45% NACL 25,000 UNIT in 0.45% NACL 1 500ML.BAG IV SCH (01:49)
[2018-04-11] MEDS ORDERED: PROPYLENE GLYCOL BOTH EYES PRN (04:07)
[2018-04-11 04:33] LABS: Troponin I 0.06 ng/mL (0.000-0.034)
[2018-04-11] MEDS: HYDROcodone/APAP 5-325MG 1 EACH TAB PO PRN ×2 (07:31→15:13)
[2018-04-11] MEDS: LEVOTHYROXINE 50 MCG TAB PO SCH (07:51)
[2018-04-11] MEDS ORDERED: FAMOTIDINE 20 MG TAB PO SCH (09:00)
[2018-04-11] MEDS: ALLOPURINOL 100 MG TAB PO SCH (09:28)
[2018-04-11] MEDS: AMOXIC-POT CLAV 500-125 MG 1 EACH TAB PO SCH ×2 (09:28→20:43)
[2018-04-11] MEDS: CLOPIDOGREL 75 MG TAB PO SCH (09:28)
[2018-04-11] MEDS: PRAVASTATIN SODIUM 40 MG TAB PO SCH (09:28)
[2018-04-11] MEDS: amLODIPine 5 MG TAB PO SCH (09:28)
[2018-04-11] MEDS: DORZOLAMIDE-TIMOLOL 2.23%/0.68 10ML BTL BOTH EYES SCH ×2 (09:29→20:43)
[2018-04-11 12:06] LABS: Creatine Kinase MB 2.4 ng/mL (0.0-2.4)
[2018-04-11 12:09] LABS: Troponin I 0.048 ng/mL (0.000-0.034)
--- NOTE | 2018-04-11 15:43 | P.HPIM ---
History of Present Illness This is a pleasant 87 years old female with past medical history of COPD, CVA/ TIA, dementia, GERD, GI bleed, hyperlipidemia, essential hypertension, bilateral macular degeneration and she is legally blind, chronic UTI with chronic low back pain. Hypothyroidism, bilateral gout of the hands and feet. The presents because of syncope twice. 2 days as per patient. Also patient has been complaining from central chest pain about 1 week duration. The pain is reproducible and nonradiating and is mildly increased with cough. However patient denies any cough currently. In the emergency room her troponins were elevated 0.04-0.06. Vitas looks stable. As per staff patient Daughter is looking for placement to group home. pier worker consult Review of Systems CONSTITUTIONAL: No fever, no malaise, no fatigue. HEENT: No recent visual problems or hearing problems. Denied any sore throat. CARDIOVASCULAR: No orthopnea, PND, no palpitations, no syncope. PULMONARY: No shortness of breath, no cough, no hemoptysis. GASTROINTESTINAL: No diarrhea, no nausea, no vomiting, no abdominal pain. Normoactive bowel sounds. NEUROLOGICAL: No headaches, no weakness, no numbness. HEMATOLOGICAL: Denies any bleeding or petechiae. GENITOURINARY: Denies any burning micturition, frequency, or urgency. MUSCULOSKELETAL/RHEUMATOLOGICAL: Denies any joint pain, swelling, or any muscle pain. ENDOCRINE: Denies any polyuria or polydipsia. Past Medical History Past Medical History: COPD, CVA/TIA, Dementia, Eye Disorder, GERD/Reflux, GI Bleed, Hyperlipidemia, Hypertension, Thyroid Disorder Additional Past Medical History / Comment(s): Bilateral macular degeneration/ glaucoma/legally blind, chronic UTIs/current antibiotic use, chronic low back pain, TIA, early COPD, PUD, lower GI bleed/ulcers, hypothyroid, gout bilateral feet/hands, sinus allergies. History of Any Multi-Drug Resistant Organisms: None Reported Past Surgical History: Bowel Resection, Hysterectomy Additional Past Surgical History / Comment(s): Bowel resection d/t bleeding ulcers with temporary colostomy. Past Anesthesia/Blood Transfusion Reactions: No Reported Reaction Additional Past Anesthesia/Blood Transfusion Reaction / Comment(s): Pt received blood with childbirth without reaction. Smoking Status: Never smoker - Past Family History Father Family Medical History: Renal Disease Additional Family Medical History / Comment(s): Father of CKD at the age of 69yrs. Mother Family Medical History: No Reported History Additional Family Medical History / Comment(s): Mother was obese. She at the age of 94 yrs. Medications and Allergies Home Medications Medication Instructions Recorded Confirmed Type Allopurinol [Zyloprim] 100 mg PO DAILY 08/14/16 04/10/18 History Clopidogrel [Plavix] 75 mg PO DAILY 08/14/16 04/10/18 History Dorzolamide-Timol 2.23%/0.68% 1 drop BOTH EYES BID 08/14/16 04/10/18 History [dorzolamide-Timolol 2%/0.5%] Famotidine 20 mg PO BID 08/14/16 04/10/18 History HYDROcodone/APAP 5-325MG [[place] 1 tab PO BID 08/14/16 04/10/18 History 5-325] Latanoprost [Xalatan 0.005%] 1 drop BOTH EYES HS 08/14/16 04/10/18 History Levothyroxine Sodium [Synthroid] 50 mcg PO DAILY 08/14/16 04/10/18 History Pravastatin Sodium [Pravachol] 40 mg PO DAILY 08/14/16 04/10/18 History Primidone [Mysoline] 50 mg PO HS 08/14/16 04/10/18 History amLODIPine [Norvasc] 5 mg PO DAILY 08/14/16 04/10/18 History Amoxic-Pot Clav 500-125 mg 1 tab PO Q12HR 04/10/18 04/10/18 History [Augmentin 500-125 mg] Propylene Glycol [Systane Complete] 1 drop BOTH EYES DAILY PRN 04/10/18 History Allergies Allergy/AdvReac Type Severity Reaction Status Date / Time cefuroxime [From Ceftin] Allergy Unknown Verified 04/10/18 20:34 clarithromycin [From Biaxin] Allergy Unknown Verified 04/10/18 20:34 sulfamethoxazole Allergy Unknown Verified 04/10/18 20:34 [From Bactrim] trimethoprim [From Bactrim] Allergy Unknown Verified 04/10/18 20:34 Physical Exam Vitals: Vital Signs Temp Pulse Pulse Resp BP BP Pulse Ox 04/11/18 12:00 98.2 F 20 L 20 139/81 100 04/11/18 08:00 98.0 F 100 20 134/81 100 04/11/18 07:01 96 137/68 93 L 04/11/18 05:00 97 128/74 04/11/18 03:00 95 131/76 99 04/11/18 02:00 94 123/90 96 04/11/18 01:30 89 148/82 100 04/10/18 22:30 105 H 148/82 98 04/10/18 21:34 98 04/10/18 20:18 97.6 F 105 H 16 166/91 99 Intake and Output 04/11/18 04/11/18 04/11/18 06:59 14:59 22:59 Intake Total 75 Balance 75 Intake: Intake, IV Titration 75 Amount Sodium Chloride 0.9% 1, 75 000 ml @ 75 mls/hr IV . [id number] [facility] Rx#:[id number] Other: Voiding Method Diaper # Voids 1 GENERAL: The patient is alert and oriented x3, not in any acute distress. Elderly lady who looks thin HEENT: Pupils are round and equally reacting to light. EOMI. No scleral icterus. No conjunctival pallor. Normocephalic, atraumatic. No pharyngeal erythema. No thyromegaly. CARDIOVASCULAR: S1 and S2 present. No murmurs, rubs, or gallops. PULMONARY: Chest is clear to auscultation, no wheezing or crackles. ABDOMEN: Soft, nontender, nondistended, normoactive bowel sounds. No palpable organomegaly. -MUSCULOSKELETAL: No joint swelling or deformity. It looks like she has stiffness all over her body and she has difficulty moving her hand and feet joints EXTREMITIES: No cyanosis, clubbing, or pedal edema. NEUROLOGICAL: Gross neurological examination did not reveal any focal deficits. SKIN: No rashes. Results CBC & Chem 7: 04/10/18 21:31 04/10/18 21:31 Labs: Abnormal Lab Results - Last 24 Hours (Table) 04/10/18 04/10/18 04/10/18 Range/Units 21:31 21:31 21:31 Neutrophils # 8.5 H (1.3-7.7) k/uL APTT (22.0-30.0) sec Chloride 111 H (98-107) mmol/L Carbon Dioxide 17 L (22-30) mmol/L BUN 28 H (7-17) mg/dL Creatinine 1.46 H (0.52-1.04) mg/dL Glucose 110 H (74-99) mg/dL Total Creatine Kinase (30-135) U/L Troponin I 0.052 H* (0.000-0.034) ng/mL Urine Blood (Negative) Ur Leukocyte Esterase (Negative) Urine RBC (0-5) /hpf Urine WBC (0-5) /hpf Urine Mucus (None) /hpf 04/10/18 04/11/18 04/11/18 Range/Units 22:35 03:39 10:55 Neutrophils # (1.3-7.7) k/uL APTT (22.0-30.0) sec Chloride (98-107) mmol/L Carbon Dioxide (22-30) mmol/L BUN (7-17) mg/dL Creatinine (0.52-1.04) mg/dL Glucose (74-99) mg/dL Total Creatine Kinase 145 H (30-135) U/L Troponin I 0.060 H* 0.048 H* (0.000-0.034) ng/mL Urine Blood Moderate H (Negative) Ur Leukocyte Esterase Small H (Negative) Urine RBC 94 H (0-5) /hpf Urine WBC 7 H (0-5) /hpf Urine Mucus Rare H (None) /hpf 04/11/18 Range/Units 10:55 Neutrophils # (1.3-7.7) k/uL APTT 60.3 H (22.0-30.0) sec Chloride (98-107) mmol/L Carbon Dioxide (22-30) mmol/L BUN (7-17) mg/dL Creatinine (0.52-1.04) mg/dL Glucose (74-99) mg/dL Total Creatine Kinase (30-135) U/L Troponin I (0.000-0.034) ng/mL Urine Blood (Negative) Ur Leukocyte Esterase (Negative) Urine RBC (0-5) /hpf Urine WBC (0-5) /hpf Urine Mucus (None) /hpf Microbiology - Last 24 Hours (Table) 04/10/18 22:35 Urine Culture - Preliminary Urine,Voided Thrombosis Risk Factor Assmnt - Choose All That Apply Any of the Below Risk Factors Present?: Yes Each Factor Represents 1 point: Abnormal pulmonary function (COPD) Other Risk Factors: Yes Each Risk Factor Represents 3 Points: Age 75 years or older Other congenital or acquired thrombophilia - If yes, enter type in comment: No Thrombosis Risk Factor Assessment Total Risk Factor Score: 4 Thrombosis Risk Factor Assessment Level: Moderate Risk Assessment and Plan Assessment: Syncope Chest pain, rule out acute coronary syndrome with elevated troponins History of CVA/TIA History of COPD Dementia GERD History of peptic ulcer disease and GI bleed Hyperlipidemia Essential hypertension Bilateral macular degeneration and patient is legally blind Chronic UTI Chronic low back pain Hypothyroidism Gout of both hands and feet Plan: This is a pleasant 87 years old female who presents because of syncope and chest pain.Labs and medication were resumed. Cardiology consultation. We'll check serial cardiac enzymes and EKG. Continue same treatment. Continue with symptomatic treatment. Resume home medication. Monitor lytes and vitals. DVT and GI prophylaxis. Further recommendationsof the clinical course of the patient DVT prophylaxis: Subcutaneous heparin GI Prophylaxis: Pepcid PT/OT: Pending as per staff family/Daughter are looking for placement. Prognosis is guarded
[2018-04-11] MEDS: HEPARIN SODIUM,PORCINE 5,000 UNIT/ML 1 ML VIAL SQ SCH (20:29)
[2018-04-11] MEDS: PRIMIDONE 50 MG TAB PO SCH (20:42)
[2018-04-11] MEDS: LATANOPROST 0.005% OPHTH DROPS 2.5 ML BTL BOTH EYES SCH (20:43)
[2018-04-12] MEDS: HEPARIN SOD,PORK IN 0.45% NACL 25,000 UNIT in 0.45% NACL 1 500ML.BAG IV SCH ×2 (02:54→05:40)
[2018-04-12] MEDS: HYDROcodone/APAP 5-325MG 1 EACH TAB PO PRN ×2 (04:45→16:24)
[2018-04-12] MEDS: LEVOTHYROXINE 50 MCG TAB PO SCH (05:39)
[2018-04-12] MEDS: SODIUM CHLORIDE 0.9% 1,000 ML IV SCH ×2 (05:40→15:45)
[2018-04-12 07:44] LABS: Calcium 8.4 mg/dL (8.4-10.2); Potassium 4.8 mmol/L (3.5-5.1)
--- NOTE | 2018-04-12 08:32 | P.PN ---
Subjective This is a pleasant 87 years old female with past medical history of COPD, CVA/ TIA, dementia, GERD, GI bleed, hyperlipidemia, essential hypertension, bilateral macular degeneration and she is legally blind, chronic UTI with chronic low back pain. Hypothyroidism, bilateral gout of the hands and feet. The presents because of syncope twice. 2 days as per patient. Also patient has been complaining from central chest pain about 1 week duration. The pain is reproducible and nonradiating and is mildly increased with cough. However patient denies any cough currently. In the emergency room her troponins were elevated 0.04-0.06. Vitas looks stable. As per staff patient Daughter is looking for placement to [facility]. cannery worker consult 04/12/2018 Patient lying in bed, clinically the same. Still complaining of from chest pain and tenderness. However no more episodes of syncope. No dyspnea. Her blood pressure was on the low side this morning 96/60, however is still quite close looks stable and patient is afebrile. Creatinine is basically the same from 1.4 to 1.3, and cartilages been consulted for elevated troponins. We will order echocardiogram. Patient has evidence of osteopenia on the x-rays. She will benefit from vitamin D and calcium. Urine cultures growing gram-negative bacilli, we are going to change antibiotics to Levaquin, patient is ALLERGIC to penicillin. And decrease IV fluids from 75-50 mL per hour Still pending placement, as per family request. Given her comorbidities and advanced age, she is very high risk for complication with poor prognosis Review of Systems CONSTITUTIONAL: No fever, no malaise, no fatigue. HEENT: No recent visual problems or hearing problems. Denied any sore throat. CARDIOVASCULAR: No orthopnea, PND, no palpitations, no syncope. PULMONARY: No shortness of breath, no cough, no hemoptysis. GASTROINTESTINAL: No diarrhea, no nausea, no vomiting, no abdominal pain. Normoactive bowel sounds. NEUROLOGICAL: No headaches, no weakness, no numbness. HEMATOLOGICAL: Denies any bleeding or petechiae. GENITOURINARY: Denies any burning micturition, frequency, or urgency. MUSCULOSKELETAL/RHEUMATOLOGICAL: Denies any joint pain, swelling, or any muscle pain. ENDOCRINE: Denies any polyuria or polydipsia. Objective - Vital Signs Vital signs: Vital Signs Temp 97.6 F 04/12/18 07:09 Pulse 94 10/27/18 07:09 Resp 18 04/12/18 07:09 BP 96/60 04/12/18 07:09 Pulse Ox 98 04/12/18 07:09 Intake & Output 04/11/18 04/12/18 04/12/18 18:59 06:59 18:59 Intake Total 404.5 394.078 31.13 Balance 404.5 394.078 31.13 Weight 45.5 kg Intake: Intake, IV Titration 164.5 394.078 31.13 Amount Heparin Sod,Pork in 0.45% 14.5 394.078 31.13 NaCl 25,000 unit In 0.45 % NaCl 1 500ml.bag @ 12 UNITS/KG/HR 14.15 mls/hr IV .Q24H [facility] Rx#: [id number] Sodium Chloride 0.9% 1, 150 000 ml @ 75 mls/hr IV . [id number] [facility] Rx#:[id number] Oral 240 Other: Voiding Method Diaper Bedpan Bedpan Diaper Diaper # Voids 1 1 # Bowel Movements 2 - Exam GENERAL: The patient is alert and oriented x3, not in any acute distress. Elderly lady who looks thin HEENT: Pupils are round and equally reacting to light. EOMI. No scleral icterus. No conjunctival pallor. Normocephalic, atraumatic. No pharyngeal erythema. No thyromegaly. -CARDIOVASCULAR: S1 and S2 present. No murmurs, rubs, or gallops. chest wall tenderness in the middle anteriorly PULMONARY: Chest is clear to auscultation, no wheezing or crackles. ABDOMEN: Soft, nontender, nondistended, normoactive bowel sounds. No palpable organomegaly. -MUSCULOSKELETAL: No joint swelling or deformity. It looks like she has stiffness all over her body and she has difficulty moving her hand and feet joints EXTREMITIES: No cyanosis, clubbing, or pedal edema. NEUROLOGICAL: Gross neurological examination did not reveal any focal deficits. SKIN: No rashes. - Labs CBC & Chem 7: 04/10/18 21:31 04/12/18 06:35 Labs: Abnormal Lab Results - Last 24 Hours (Table) 04/11/18 04/11/18 04/12/18 Range/Units 10:55 10:55 06:35 APTT 60.3 H (22.0-30.0) sec Chloride 113 H (98-107) mmol/L Carbon Dioxide 14 L (22-30) mmol/L BUN 27 H (7-17) mg/dL Creatinine 1.39 H (0.52-1.04) mg/dL Total Creatine Kinase 145 H (30-135) U/L Troponin I 0.048 H* (0.000-0.034) ng/mL 04/12/18 Range/Units 06:35 APTT 61.9 H (22.0-30.0) sec Chloride (98-107) mmol/L Carbon Dioxide (22-30) mmol/L BUN (7-17) mg/dL Creatinine (0.52-1.04) mg/dL Total Creatine Kinase (30-135) U/L Troponin I (0.000-0.034) ng/mL Microbiology - Last 24 Hours (Table) 04/10/18 22:35 Urine Culture - Preliminary Urine,Voided Gram Neg Bacilli Assessment and Plan Assessment: Syncope Chest pain, rule out acute coronary syndrome with elevated troponins Urinary tract infection, present on admission History of CVA/TIA History of COPD Dementia GERD History of peptic ulcer disease and GI bleed Hyperlipidemia Essential hypertension Bilateral macular degeneration and patient is legally blind Chronic UTI Chronic low back pain Hypothyroidism Gout of both hands and feet Plan: This is a pleasant 87 years old female who presents because of syncope and chest pain.Labs and medication were resumed. Cardiology consultation. We'll check serial cardiac enzymes and EKG. Continue same treatment. Continue with symptomatic treatment. Resume home medication. Monitor lytes and vitals. DVT and GI prophylaxis. Further recommendationsof the clinical course of the patient DVT prophylaxis: Subcutaneous heparin GI Prophylaxis: Pepcid PT/OT: Pending as per staff family/Daughter are looking for placement. Prognosis is guarded
[2018-04-12] MEDS ORDERED: LEVOFLOXACIN 500MG-D5W PMX 500 MG in DEXTROSE/WATER 1 100ML.BAG IVPB ONE (09:00)
[2018-04-12] MEDS ORDERED: ASPIRIN 325 MG TAB PO SCH (09:00)
[2018-04-12] MEDS: PRAVASTATIN SODIUM 40 MG TAB PO SCH (09:37)
[2018-04-12] MEDS: amLODIPine 5 MG TAB PO SCH (09:37)
[2018-04-12] MEDS: ALLOPURINOL 100 MG TAB PO SCH (09:37)
[2018-04-12] MEDS: CLOPIDOGREL 75 MG TAB PO SCH (09:37)
[2018-04-12] MEDS: FAMOTIDINE 20 MG TAB PO SCH (09:37)
[2018-04-12] MEDS: HEPARIN SODIUM,PORCINE 5,000 UNIT/ML 1 ML VIAL SQ SCH ×2 (09:38→19:37)
[2018-04-12] MEDS: DORZOLAMIDE-TIMOLOL 2.23%/0.68 10ML BTL BOTH EYES SCH ×2 (09:38→19:45)
--- NOTE | 2018-04-12 11:41 | P.CRDCN ---
History of Present Illness Consult date: 04/12/18 Requesting physician: Mary Lou Parrish Consult reason: sycope Chief complaint: Syncope History of present illness: This is a pleasant 87-year-old female who is legally blind, extremely hard of hearing, has history of COPD, prior CVA, mild dementia, GERD, prior GI bleed, hyperlipidemia, hypertension, hypothyroidism, chronic UTIs, who presented to the hospital following 2 separate syncopal episodes. Some of the history was obtained from the medical record although the patient is able to provide some history as well. Patient apparently has had a significant decrease in appetite and has not been drinking much at home, she does state she' s getting occasional discomfort in her chest and has been more short of breath than usual. She had a couple episodes where she fell down to the ground, and states that she didn't lose consciousness. She does state that she gets mild dizziness, and at times feels lightheaded. A cardiology consultation was requested because of syncopal episodes. Chest x-ray performed on admission here revealed scarring and subsegmental atelectasis in the left lower lobe with no heart failure. CT of the head and cervical spine revealed cerebral atrophy and chronic small vessel ischemia. Old left parietal cortical infarct. X-ray of the hip and pelvis did not reveal any acute abnormality. Lumbar spine x-ray reveals significant osteopenia, there is an old L3 compression fracture unchanged from prior. EKG on admission here showed a normal sinus rhythm with no acute changes. Blood pressure on admission 166/90 with a heart rate of 105, 99% on room air. Blood pressure this morning 96/60 with a heart rate in the low 100s. White blood cell count 10.3, hemoglobin 12.0, platelet count 196. Sodium 138, potassium 4.8, BUN 27, creatinine 1.3. Troponins 0.052, 0.060, 0.048. Cholesterol 119, LDL 45, HDL 57, triglycerides 83. At the time of my examination this morning, patient is lying flat in bed, does not appear to feel short of breath, although she states she is mildly short of breath. She denies any chest discomfort. Past Medical History Past Medical History: COPD, CVA/TIA, Dementia, Eye Disorder, GERD/Reflux, GI Bleed, Hyperlipidemia, Hypertension, Thyroid Disorder Additional Past Medical History / Comment(s): Bilateral macular degeneration/ glaucoma/legally blind, chronic UTIs/current antibiotic use, chronic low back pain, TIA, early COPD, PUD, lower GI bleed/ulcers, hypothyroid, gout bilateral feet/hands, sinus allergies. History of Any Multi-Drug Resistant Organisms: None Reported Past Surgical History: Bowel Resection, Hysterectomy Additional Past Surgical History / Comment(s): Bowel resection d/t bleeding ulcers with temporary colostomy. Past Anesthesia/Blood Transfusion Reactions: No Reported Reaction Additional Past Anesthesia/Blood Transfusion Reaction / Comment(s): Pt received blood with childbirth without reaction. Smoking Status: Never smoker - Past Family History Father Family Medical History: Renal Disease Additional Family Medical History / Comment(s): Father of CKD at the age of 69yrs. Mother Family Medical History: No Reported History Additional Family Medical History / Comment(s): Mother was obese. She at the age of 94 yrs. Medications and Allergies Home Medications Medication Instructions Recorded Confirmed Type Allopurinol [Zyloprim] 100 mg PO DAILY 08/14/16 04/10/18 History Clopidogrel [Plavix] 75 mg PO DAILY 08/14/16 04/10/18 History Dorzolamide-Timol 2.23%/0.68% 1 drop BOTH EYES BID 08/14/16 04/10/18 History [dorzolamide-Timolol 2%/0.5%] Famotidine 20 mg PO BID 08/14/16 04/10/18 History HYDROcodone/APAP 5-325MG [[place] 1 tab PO BID 08/14/16 04/10/18 History 5-325] Latanoprost [Xalatan 0.005%] 1 drop BOTH EYES HS 08/14/16 04/10/18 History Levothyroxine Sodium [Synthroid] 50 mcg PO DAILY 08/14/16 04/10/18 History Pravastatin Sodium [Pravachol] 40 mg PO DAILY 08/14/16 04/10/18 History Primidone [Mysoline] 50 mg PO HS 08/14/16 04/10/18 History amLODIPine [Norvasc] 5 mg PO DAILY 08/14/16 04/10/18 History Amoxic-Pot Clav 500-125 mg 1 tab PO Q12HR 04/10/18 04/10/18 History [Augmentin 500-125 mg] Propylene Glycol [Systane Complete] 1 drop BOTH EYES DAILY PRN 04/10/18 History Allergies Allergy/AdvReac Type Severity Reaction Status Date / Time cefuroxime [From Ceftin] Allergy Unknown Verified 04/10/18 20:34 clarithromycin [From Biaxin] Allergy Unknown Verified 04/10/18 20:34 sulfamethoxazole Allergy Unknown Verified 04/10/18 20:34 [From Bactrim] trimethoprim [From Bactrim] Allergy Unknown Verified 04/10/18 20:34 Physical Exam Vitals: Vital Signs Temp Pulse Resp BP Pulse Ox 04/12/18 07:09 97.6 F 94 18 96/60 98 04/12/18 04:00 98.6 F 107 H 18 124/69 95 04/12/18 00:03 100 04/12/18 00:00 97 17 141/82 100 04/11/18 20:00 97.7 F 102 H 17 143/75 100 04/11/18 16:22 124/74 04/11/18 16:00 98.2 F 105 H 20 151/95 98 04/11/18 12:00 98.2 F 20 L 20 139/81 100 Intake and Output 04/11/18 04/12/18 04/12/18 22:59 06:59 14:59 Intake Total 329.5 394.078 31.13 Balance 329.5 394.078 31.13 Intake: Intake, IV Titration 89.5 394.078 31.13 Amount Heparin Sod,Pork in 0.45% 14.5 394.078 31.13 NaCl 25,000 unit In 0.45 % NaCl 1 500ml.bag @ 12 UNITS/KG/HR 14.15 mls/hr IV .Q24H [facility] Rx#: [id number] Sodium Chloride 0.9% 1, 75 000 ml @ 75 mls/hr IV . [id number] [facility] Rx#:[id number] Oral 240 Other: Voiding Method Bedpan Bedpan Bedpan Diaper Diaper Diaper # Voids 1 1 # Bowel Movements 2 Weight 45.5 kg PHYSICAL EXAMINATION: GENERAL: 87-year-old female in no acute distress at the time of my examination HEENT: Head is atraumatic, normocephalic. Pupils equal, round. Sclera anicteric. Conjunctiva are clear. Legally blind. Mucous membranes of the mouth are moist. Neck is supple. There is no elevated jugular venous pressure. No carotid bruit is heard. Patient is very hard of hearing. HEART EXAMINATION: Heart S1 S2 1 systolic murmur is heard. CHEST EXAMINATION: Lungs are clear to auscultation and precussion. No chest wall tenderness is noted on palpation or with deep breathing. ABDOMEN: Soft, nontender. Bowel sounds are heard. No organomegaly noted. EXTREMITIES: 2+ peripheral pulses with no evidence of peripheral edema and no calf tenderness noted. Patient does have some bluish discoloration of her bilateral hands and fingers, some deformity from arthritis noted. NEUROLOGIC patient is awake, alert and oriented X3. . Results 04/10/18 21:31 04/12/18 06:35 Cardiac Enzymes 04/11/18 Range/Units 10:55 CK-MB (CK-2) 2.4 (0.0-2.4) ng/mL Troponin I 0.048 H* (0.000-0.034) ng/mL Coagulation 04/11/18 04/12/18 Range/Units 10:55 06:35 APTT 60.3 H 61.9 H (22.0-30.0) sec Lipids 04/12/18 Range/Units 06:35 Triglycerides 83 (<150) mg/dL Cholesterol 119 (<200) mg/dL HDL Cholesterol 57 (40-60) mg/dL Comprehensive Metabolic Panel 04/12/18 Range/Units 06:35 Sodium 138 (137-145) mmol/L Potassium 4.8 (3.5-5.1) mmol/L Chloride 113 H (98-107) mmol/L Carbon Dioxide 14 L (22-30) mmol/L BUN 27 H (7-17) mg/dL Creatinine 1.39 H (0.52-1.04) mg/dL Glucose 89 (74-99) mg/dL Calcium 8.4 (8.4-10.2) mg/dL Current Medications Generic Name Dose Route Start Last Admin Trade Name Freq PRN Reason Stop Dose Admin Hydrocodone Bitart/Acetaminophen 1 each 04/11/18 09:00 04/12/18 04:45 [place] 5-325 PO 1 each BID PRN Administration pain Allopurinol 100 mg 04/11/18 09:00 04/12/18 09:37 Zyloprim PO 100 mg DAILY [facility] Administration Amlodipine Besylate 5 mg 04/11/18 09:00 04/12/18 09:37 Norvasc PO 5 mg DAILY [facility] Administration Aspirin 81 mg 04/13/18 09:00 Aspirin PO DAILY [facility] Clopidogrel Bisulfate 75 mg 04/11/18 09:00 04/12/18 09:37 Plavix PO 75 mg DAILY [facility] Administration Dorzolamide/Timolol 1 drops 04/11/18 09:00 04/12/18 09:38 Cosopt BOTH EYES 1 drops BID [facility] Administration Famotidine 20 mg 04/12/18 09:00 04/12/18 09:37 Pepcid PO 20 mg DAILY [facility] Administration Heparin Sodium (Porcine) 5,000 unit 04/11/18 21:00 04/12/18 09:38 Heparin SQ Not Given Q12HR [facility] Heparin Sodium/Sodium Chloride 500 mls @ 14.15 mls/hr 04/11/18 00:30 07:52 25,000 unit/ Sodium Chloride IV 12 units/kg/hr .Q24H [facility] 14.15 mls/hr Titration Protocol 12 UNITS/KG/HR Sodium Chloride 1,000 mls @ 50 mls/hr 04/11/18 00:45 04/12/18 05:40 Saline 0.9% IV 75 mls/hr .Q20H [facility] Administration Levofloxacin/Dextrose 250 mg/ 50 mls @ 50 mls/hr 04/13/18 09:00 IV Solution IVPB DAILY [facility] Latanoprost 1 drops 04/11/18 21:00 04/11/18 20:43 Xalatan 0.005% BOTH EYES 1 drops HS [facility] Administration Levothyroxine Sodium 50 mcg 04/11/18 06:30 04/12/18 05:39 Synthroid PO 50 mcg DAILY@0630 [facility] Administration Nitroglycerin 0.4 mg 04/11/18 00:26 Nitrostat SUBLINGUAL Q5M PRN Chest Pain Propylene Glycol [ 1 drop 04/11/18 04:07 Systane Complete] BOTH EYES DAILY PRN Dry Eye(s) Pravastatin Sodium 40 mg 04/11/18 09:00 04/12/18 09:37 Pravachol PO 40 mg DAILY [facility] Administration Primidone 50 mg 04/11/18 21:00 04/11/18 20:42 Mysoline PO 50 mg HS [facility] Administration Intake and Output 04/11/18 04/12/18 04/12/18 22:59 06:59 14:59 Intake Total 329.5 394.078 31.13 Balance 329.5 394.078 31.13 Intake: Intake, IV Titration 89.5 394.078 31.13 Amount Heparin Sod,Pork in 0.45% 14.5 394.078 31.13 NaCl 25,000 unit In 0.45 % NaCl 1 500ml.bag @ 12 UNITS/KG/HR 14.15 mls/hr IV .Q24H [facility] Rx#: [id number] Sodium Chloride 0.9% 1, 75 000 ml @ 75 mls/hr IV . [id number] [facility] Rx#:[id number] Oral 240 Other: Voiding Method Bedpan Bedpan Bedpan Diaper Diaper Diaper # Voids 1 1 # Bowel Movements 2 Weight 45.5 kg 04/10/18 21:31 04/12/18 06:35 EKG Interpretations (text) EKG shows normal sinus rhythm with no acute changes. Assessment and Plan Plan: Assessment and plan #1 syncope, rule out cardiac causes. Rule out possible pulmonary embolism. #2 abnormal troponins, could be secondary to acute coronary syndrome, patient did have an episode of chest discomfort. EKG shows no acute changes. Need to rule out possibility of pulmonary embolism. #3 history of CVA/TIA #4 COPD #5 dementia #6 GERD #7 hyperlipidemia #8 hypertension #9 macular degeneration, patient is legally blind #10 chronic UTI #11 hypothyroidism Plan We will obtain an echocardiogram with Doppler study. We will check orthostatic heart rate and blood pressure every shift. Continue to monitor for any tachycardia or bradycardia arrhythmias. We will also check a d-dimer to rule out possibility of pulmonary embolism. It is likely that patient may have underlying coronary artery disease based on risk factors and age, we will treat medically at this time. Further recommendations will be based on these findings and the patient's clinical course. DNP note has been reviewed, I agree with a documented findings and plan of care. Patient was seen and examined.
--- NOTE | 2018-04-12 17:26 | ECHOF ---
Referral Reason:syncope MEASUREMENTS -------- HEIGHT: 152.4 cm WEIGHT: 45.4 kg BP: IVSd: 0.8 cm (0.6 - 1.1) LVIDd: 3.2 cm (3.9 - 5.3) LVPWd: 1.2 cm (0.6 - 1.1) IVSs: 1.2 cm LVIDs: 1.6 cm LVPWs: 1.5 cm Ao Diam: 2.7 cm (2.0 - 3.7) AV Cusp: 1.0 cm (1.5 - 2.6) LA Diam: 2.4 cm (2.7 - 3.8) MV EXCURSION: 9.371 mm (> 18.000) MV EF SLOPE: 38 mm/s (70 - 150) EPSS: 0.6 cm MV E Colby: 0.88 m/s MV DecT: 201 ms MV A [place]: 1.35 m/s MV E/A Ratio: 0.66 RAP: 5.00 mmHg RVSP: 10.65 mmHg FINDINGS -------- Sinus rhythm. This was a technically difficult study with suboptimal views. The left ventricular size is normal. There is mild concentric left ventricular hypertrophy. Overa ll left ventricular systolic function is normal with, an EF between 55 - 60 %. The right ventricle is normal in size and function. The left atrium is normal in size. The right atrium is normal in size. Lumason used The aortic valve was not well visualized. Mild mitral annular calcification present. There is trace mitral regurgitation. Trace tricuspid regurgitation present. There is no evidence of pulmonary hypertension. The right ventricular systolic pressure, as measured by Doppler, is 10.65mmHg. The pulmonic valve was not well visualized. The aortic root size is normal. There is no pericardial effusion. CONCLUSIONS -------- 1. Sinus rhythm. 2. This was a technically difficult study with suboptimal views. 3. The left ventricular size is normal. 4. There is mild concentric left ventricular hypertrophy. 5. Overall left ventricular systolic function is normal with, an EF between 55 - 60 %. 6. The left atrium is normal in size. 7. Lumason used 8. The aortic valve was not well visualized. 9. Mild mitral annular calcification present. 10. There is trace mitral regurgitation. 11. Trace tricuspid regurgitation present. 12. There is no evidence of pulmonary hypertension. 13. The pulmonic valve was not well visualized. 14. The aortic root size is normal. 15. There is no pericardial effusion. FINISHED CARPET INSPECTOR: Coretta Rowe RDCS
[2018-04-12] MEDS: PRIMIDONE 50 MG TAB PO SCH (19:45)
[2018-04-12] MEDS: LATANOPROST 0.005% OPHTH DROPS 2.5 ML BTL BOTH EYES SCH (19:45)
[2018-04-12 21:26] LABS: HCT 30.6 % (34.0-46.0); HGB 10.2 gm/dL (11.4-16.0); MCH 29.8 pg (25.0-35.0); MCHC 33.2 g/dL (31.0-37.0); MCV 89.9 fL (80.0-100.0); Mean Platelet Volume 7.8; Platelet Count 182 k/uL (150-450); RBC 3.41 m/uL (3.80-5.40); RDW 14.2 % (11.5-15.5); WBC 11.1 k/uL (3.8-10.6)
[2018-04-12] MEDS: metroNIDAZOLE-NS PMX 500 MG in SALINE 1 100ML.BAG IVPB SCH (23:32)
[2018-04-13] MEDS: HYDROcodone/APAP 5-325MG 1 EACH TAB PO PRN ×3 (04:10→18:05)
[2018-04-13] MEDS: LEVOTHYROXINE 50 MCG TAB PO SCH (06:32)
[2018-04-13] MEDS: CALCIUM CARB-VIT D 500MG-200UN 1 EACH TAB PO SCH ×2 (06:32→18:05)
[2018-04-13 06:39] LABS: Basophils % (A) 0 %; Eosinophils # (A) 0.1 k/uL (0-0.7); Eosinophils % (A) 1 %; HCT 31.4 % (34.0-46.0); HGB 10.1 gm/dL (11.4-16.0); Lymphocytes # (A) 0.7 k/uL (1.0-4.8); Lymphocytes % (A) 7 %; MCH 29.3 pg (25.0-35.0); MCHC 32.3 g/dL (31.0-37.0); MCV 90.6 fL (80.0-100.0); Mean Platelet Volume 6.9; Monocytes # (A) 0.4 k/uL (0-1.0); Monocytes % (A) 4 %; Neutrophils % (A) 88 %; Platelet Count 198 k/uL (150-450); RBC 3.46 m/uL (3.80-5.40); RDW 14.1 % (11.5-15.5); WBC 10.3 k/uL (3.8-10.6)
[2018-04-13 06:58] LABS: Calcium 8.4 mg/dL (8.4-10.2); Potassium 4.6 mmol/L (3.5-5.1)
--- NOTE | 2018-04-13 08:52 | NM ---
EXAMINATION TYPE: NM pul vent and perfuse DATE OF EXAM: 04/13/2018 COMPARISON: Chest x-ray dated 04/10/2018 HISTORY: Cough and difficulty breathing TECHNIQUE: Utilizing inhalation of 70.2 mCi Tc 99m DTPA aerosol and intravenous injection of 5.12 mC i of Tc 99m MAA, ventilation and perfusion images are acquired post injection in multiple projections . FINDINGS: There is a slightly patchy distribution of uptake of radiotracer. There are no VQ mismatche s. IMPRESSION: This examination is low probability for pulmonary embolus.
[2018-04-13] MEDS ORDERED: LEVOFLOXACIN 250MG-D5W PMX 250 MG in DEXTROSE/WATER 1 50ML.BAG IVPB SCH (09:00)
[2018-04-13] MEDS: metroNIDAZOLE-NS PMX 500 MG in SALINE 1 100ML.BAG IVPB SCH ×2 (09:08→18:03)
[2018-04-13] MEDS: ALLOPURINOL 100 MG TAB PO SCH (09:08)
[2018-04-13] MEDS: FAMOTIDINE 20 MG TAB PO SCH (09:09)
[2018-04-13] MEDS: ASPIRIN 81 MG PO SCH (09:09)
[2018-04-13] MEDS: HEPARIN SODIUM,PORCINE 5,000 UNIT/ML 1 ML VIAL SQ SCH (09:09)
[2018-04-13] MEDS: PRAVASTATIN SODIUM 40 MG TAB PO SCH (09:09)
[2018-04-13] MEDS: CLOPIDOGREL 75 MG TAB PO SCH (09:09)
[2018-04-13] MEDS: amLODIPine 5 MG TAB PO SCH (09:09)
[2018-04-13] MEDS: SODIUM CHLORIDE 0.9% 1,000 ML IV SCH (12:44)
[2018-04-13] MEDS: VANCOMYCIN ORAL SOLUTION 250 MG/5 ML BOTTLE PO SCH ×2 (12:45→18:06)
[2018-04-13] MEDS: CHERRY FLAVOR 60 ML BOTTLE PO SCH ×2 (12:45→18:06)
[2018-04-13] MEDS: DORZOLAMIDE-TIMOLOL 2.23%/0.68 10ML BTL BOTH EYES SCH ×2 (12:53→21:07)
--- NOTE | 2018-04-13 13:54 | P.PN ---
Subjective This is a pleasant 87-year-old female past medical history significant for COPD, hypertension, dyslipidemia, prior CVA, legally blind extremely hard of hearing. We have been consulted to see her secondary to syncopal episodes. She has since been diagnosed with C. diff in the stool. D- dimer was obtained and was mildly elevated, VQ scan shows low probability for PE. 2-D echocardiogram and Doppler study obtained reveals preserved left ventricular systolic function with ejection fraction 55-60%. Orthostatic vital signs it not been obtained secondary to profound weakness and inability to stand the patient. Laboratory data reviewed, hemoglobin 10.1, platelets 188, sodium 138, potassium 4.6, creatinine 1.62. Blood pressure 134/71 heart rate 97 afebrile maintaining oxygen saturation on nasal cannula 2 L. Currently maintained on aspirin 81 mg daily, Plavix 75 mg daily and pravastatin 40 mg daily. She denies symptoms of chest pain, dizziness, palpitations or shortness of breath. GENERAL: Well-appearing, well-nourished and in no acute distress. NECK: Supple without JVD or thyromegaly. LUNGS: Breath sounds clear to auscultation bilaterally. Respiration equal and unlabored. No wheezes, rales or rhonchi. HEART: Regular rate and rhythm without murmurs, rubs or gallops. S1 and S2 heard. EXTREMITIES: Normal range of motion, no edema. No clubbing or cyanosis. Peripheral pulses intact. ASSESSMENT Syncope. Pulmonary embolism has been ruled out. Possibly secondary to line depletion secondary to C. diff. Mild troponin leak. Clostridium difficile History of CVA/TIA maintained on Plavix COPD Dyslipidemia hypertension Macular degeneration, legally blind PLAN No acute arrhythmia noted on telemetry. Ongoing medical management. Nurse Practitioner note has been reviewed, I agree with a documented findings and plan of care. Patient was seen and examined. Objective - Vital Signs Vital signs: Vital Signs Temp 97.4 F L 04/13/18 08:00 Pulse 97 04/13/18 08:00 Resp 18 04/13/18 08:00 BP 134/71 04/13/18 08:00 Pulse Ox 96 04/13/18 08:00 Intake & Output 04/12/18 04/13/18 04/13/18 18:59 06:59 18:59 Intake Total 131.13 201.166 Output Total 50 5 1 Balance 81.13 196.166 -1 Weight 45.5 kg 49 kg Intake: Intake, IV Titration 31.13 201.166 Amount Heparin Sod,Pork in 0.45% 31.13 201.166 NaCl 25,000 unit In 0.45 % NaCl 1 500ml.bag @ 12 UNITS/KG/HR 14.15 mls/hr IV .Q24H [facility] Rx#: [id number] Oral 100 Output: Stool 5 1 Urine/Stool Mix 50 Other: Voiding Method Bedpan Bedpan Bedpan Diaper Diaper Diaper # Voids 2 2 # Bowel Movements 1 - Labs CBC & Chem 7: 04/13/18 06:21 04/13/18 06:21 Labs: Abnormal Lab Results - Last 24 Hours (Table) 04/12/18 04/12/18 04/12/18 Range/Units 19:32 19:32 21:13 WBC 11.1 H (3.8-10.6) k/uL RBC 3.41 L (3.80-5.40) m/uL Hgb 10.2 L (11.4-16.0) gm/dL Hct 30.6 L (34.0-46.0) % Neutrophils # (1.3-7.7) k/uL Lymphocytes # (1.0-4.8) k/uL Chloride (98-107) mmol/L Carbon Dioxide (22-30) mmol/L BUN (7-17) mg/dL Creatinine (0.52-1.04) mg/dL Stool Occult Blood Positive H (Negative) C. difficile (EIA) Intrp Positive A (Negative) 04/13/18 04/13/18 Range/Units 06:21 06:21 WBC (3.8-10.6) k/uL RBC 3.46 L (3.80-5.40) m/uL Hgb 10.1 L (11.4-16.0) gm/dL Hct 31.4 L (34.0-46.0) % Neutrophils # 9.0 H (1.3-7.7) k/uL Lymphocytes # 0.7 L (1.0-4.8) k/uL Chloride 115 H (98-107) mmol/L Carbon Dioxide 12 L (22-30) mmol/L BUN 33 H (7-17) mg/dL Creatinine 1.62 H (0.52-1.04) mg/dL Stool Occult Blood (Negative) C. difficile (EIA) Intrp (Negative) Microbiology - Last 24 Hours (Table) 04/10/18 22:35 Urine Culture - Final Urine,Voided Morganella morganii
--- NOTE | 2018-04-13 14:51 | CONS ---
CONSULTATION DATE OF SERVICE: 04/13/2018. REASON FOR CONSULTATION: C diff colitis and Hemoccult positive stool. HISTORY OF PRESENT ILLNESS: The patient is an 87-year-old pleasant white female with a past medical medical history of COPD and history of CVA in the past, mild dementia, who was admitted to the hospital because of syncope and frequent falls at home. Also she has been complaining of intermittent chest pain. After coming to the emergency room she was noted to have severe diarrhea with bowel movements anywhere from 5 to 6 per day, which were loose to watery in consistency, and stool was sent for C diff toxin and was reported as positive yesterday evening. She was subsequently started on IV Flagyl and oral vancomycin. In the meantime, her stool was Hemoccult positive. Because of the anemia and Hemoccult positive stool, we were consulted. The patient is a very poor historian. On further questioning, as per the nursing staff, she did continues to have some diarrhea. No rectal bleeding or melena. She reports no nausea or vomiting. No fever, chills, or night sweats. PAST MEDICAL HISTORY: Significant for hypertension, dementia, CVA/TIA in the past, COPD, GERD, hyperlipidemia, hypothyroidism. PAST SURGICAL HISTORY: Bilateral , bowel resection in the past, hysterectomy. FAMILY HISTORY: Mother had chronic kidney disease. Father unremarkable. MEDICATIONS: At home include Zyloprim, Plavix, famotidine, [place], Synthroid, Pravachol, Mysoline, Norvasc, Augmentin. ALLERGIES: Ceftin, Biaxin, Bactrim. SOCIAL HISTORY: No smoking or alcohol use. FAMILY HISTORY: As mentioned above. REVIEW OF SYSTEMS: CARDIOPULMONARY: She denies any chest pain or shortness of breath. GENITOURINARY: No dysuria or hematuria. MUSCULOSKELETAL: Reports no new symptoms. NEURO: Mild dementia. PSYCHIATRIC: Unremarkable. ENT: Unremarkable. CONSTITUTIONAL: No recent weight loss. No fevers, chills or night sweats. EXAMINATION: GENERAL: She appears comfortable, in no apparent distress. VITAL SIGNS: Stable. Blood pressure 138/74, pulse rate 102, temperature 97.4. HEENT: Unremarkable. Conjunctivae pink. Sclerae anicteric. Oral cavity no lesions. NECK: No JVD. No lymph node enlargement. CHEST: Clear to auscultation. HEART: Regular rate and rhythm. ABDOMEN: Soft. Bowel sounds are positive. No organomegaly. EXTREMITIES: No pedal edema. NEUROLOGIC: Alert, oriented to name but not to place and time. LABS: Done at the time of admission to the hospital, WBC is 11.1, hemoglobin 10.2, platelets are normal. BUN and creatinine within normal limits. Troponin was 0.048. Stool Hemoccult was positive. C diff toxin was positive. Repeat hemoglobin today is 10.1 g/dL. IMPRESSION: 1. Hemoccult-positive stool, but clinically no evidence of active bleeding. The patient had elevated troponin and chest pain. She was started on IV heparin, which was subsequently stopped. Hemoglobin stable at 10.1. No evidence of active ongoing bleeding. 2. Diarrhea of 2 days duration. Stool for C diff is positive. Presently on IV Flagyl and oral vancomycin and diarrhea is gradually improving. 3. Urinary tract infection, on broad-spectrum antibiotics. 4. History of dementia. 5. History of cerebrovascular accident/transient ischemic attack in the past. RECOMMENDATIONS: 1. Continue with Flagyl and vancomycin for C diff colitis. 2. For Hemoccult-positive stool, no need for any endoscopy intervention at the present time since hemoglobin is stable and no evidence of active ongoing bleeding. 3. Repeat CBC in the morning. We will follow her closely during hospital stay. Thank you for this consultation. MMTABATHAL / IJN: [id number] /
--- NOTE | 2018-04-13 17:54 | CONS ---
CONSULTATION DATE OF SERVICE: 04/13/2018. REASON FOR CONSULTATION: C difficile colitis. HISTORY OF PRESENT ILLNESS: The patient is an 87-year-old female who was brought into the ER at [facility] on 04/10/2018 by her daughter for evaluation of falls at home. Apparently the patient did have multiple falls at home recently. She has not been eating or drinking as much and has lost a lot of weight. The patient also having some diarrhea at home. However, the patient was unable to tell me times she has been to the bathroom or how many times she did have this diarrhea. With her fall on the , she was unable to get up. Subsequently, the patient has been brought into the ER. The patient apparently recently has been evaluated in outpatient setting by primary care physician and has been diagnosed with UTI for which the patient has been started on some antibiotics. However, it is not clear which antibiotic the patient was taking at home before she came to hospital. With these symptoms, the patient was evaluated by the ER physician. On arrival to the ER, the patient has been afebrile. The patient's white count was slightly elevated 11.1 yesterday and is 10.3 today. The patient UA has been mildly positive with small leukocyte esterase, only 7 WBC. Urine showing a Morganella that is sensitive to Levaquin patient is currently on. However the patient noticed to have multiple loose stools for which a stool for C difficile was done which came back positive. Hence Infectious Disease was consulted for further recommendation regarding antibiotic therapy. Patient at this time is not a very good historian to ask her symptomatology. However, the patient categorically denies having any chest pain or shortness of breath or cough. No nausea or any vomiting reported by the nursing staff. However, multiple loose stools as documented earlier foul smelling per the RN taking care of the patient. REVIEW OF SYSTEMS: Could not be reliably obtained. The positive points have been mentioned in HPI. PAST MEDICAL HISTORY: Significant for COPD, CVA, TIA, hyperlipidemia, hypertension, hypothyroidism, and is legally blind. PAST SURGICAL HISTORY: She did have a bowel resection, hysterectomy. SOCIAL HISTORY: No history of smoking, drinking, or drug use. FAMILY HISTORY: No pertinent findings were noticed. ALLERGIES: TO SULFAMETHOXAZOLE and CEFUROXIME. MEDICATION: Medications include the patient is currently on [place], Zyloprim, aspirin, Os- Miguel Angel D, Plavix, Pepcid, heparin, Levofloxacin, Flagyl, vancomycin 250 p.o. q.6 hours. PHYSICAL EXAMINATION: Her blood pressure is 98/53 with a pulse of 100. Temperature 97.4. She is 100 % on 2 L nasal cannula. General description is an elderly female lying in bed in no distress. No tachypnea or accessory muscles of respiration use. HEENT: Shows pallor. No scleral icterus. Oral mucosal membranes are dry. NECK: Trachea central. No thyromegaly. LUNGS: Unlabored breathing. Clear to auscultation anteriorly. Heart S1, S2. Regular rate and rhythm. Abdomen soft, mild tenderness in lower quadrant area. No guarding. No rigidity. Extremities: No edema of the feet. Skin examination: No rash or mass palpable. Neurological: Patient is awake, alert, oriented times three. Mood and affect normal. LABS: Hemoglobin is 10.9, white count of 11.1 with a BUN of 33, creatinine 1.6, electrolytes have been normal. Troponin slightly elevated. Stool for C difficile is positive. Urine was not significantly positive. Urine culture growing Morganella. DIAGNOSTIC IMPRESSION/PLAN: 1. Patient admitted to the hospital with fall and diarrhea in the outpatient setting and has been on antibiotic in outpatient setting for a UTI. On admission, the patient did have mildly positive UA with question of possible cystitis with urine culture showed Morganella. However, the patient received about 3 days of antibiotic for the same that should be more than enough. 2. The patient did have significant diarrhea with exposure to antibiotics in the outpatient as well as inpatient setting, likely asymptomatic C difficile colitis. 3. Patient do have multiple antibiotic allergies that will limit the number of antibiotics that could be safely used. PLAN: 1. Discontinue the Levaquin as the mild urinary tract infection adequately treated. 2. Vancomycin 250 p.o. q.6 hours for underlying C difficile. However, add Questran for symptomatic relief and toxin binding. 3. Contact isolation. 4. We will follow up on clinical condition and culture to further adjust medication if needed. Thank you for this consultation. We will follow this patient along with you. MMODL / IJN: [id number] / HECTOR
--- NOTE | 2018-04-13 18:07 | P.PN ---
Subjective This is a pleasant 87 years old female with past medical history of COPD, CVA/ TIA, dementia, GERD, GI bleed, hyperlipidemia, essential hypertension, bilateral macular degeneration and she is legally blind, chronic UTI with chronic low back pain. Hypothyroidism, bilateral gout of the hands and feet. The presents because of syncope twice. 2 days as per patient. Also patient has been complaining from central chest pain about 1 week duration. The pain is reproducible and nonradiating and is mildly increased with cough. However patient denies any cough currently. In the emergency room her troponins were elevated 0.04-0.06. Vitas looks stable. As per staff patient Daughter is looking for placement to [facility]. [place] worker consult 04/12/2018 Patient lying in bed, clinically the same. Still complaining of from chest pain and tenderness. However no more episodes of syncope. No dyspnea. Her blood pressure was on the low side this morning 96/60, however is still quite close looks stable and patient is afebrile. Creatinine is basically the same from 1.4 to 1.3, and cartilages been consulted for elevated troponins. We will order echocardiogram. Patient has evidence of osteopenia on the x-rays. She will benefit from vitamin D and calcium. Urine cultures growing gram-negative bacilli, we are going to change antibiotics to Levaquin, patient is ALLERGIC to penicillin. And decrease IV fluids from 75-50 mL per hour Still pending placement, as per family request. Given her comorbidities and advanced age, she is very high risk for complication with poor prognosis 04/13/18 Patient still looks generally weak and with malaise. She still complaining from some chest pain however no dyspnea. Vitas is stable except for little tachycardia since admission Patient is having diarrhea with about 3-4 bowel movements during the night and same during the day. Patient is positive for C. diff. And patient was started on Flagyl, we will add by mouth vancomycin. As well as positive FOBT. Hemoglobin with mild drop from 12 to 10.0, however at stable obtained. She had elevated d-dimer spot with VQ scan: Low probability for PE. Heparin drip was held due to drop in hemoglobin with blood in stool. Monitor hemoglobin for now and will call for GI consult. WBC came back to normal today 10.3 K. Creatinine slightly elevated from 1.3 to 1.6, her blood pressures at slow at certain points so we're going to hold Norvasc for now and put patient on IV fluids at 75 mL/h. Urine culture is positive for Morganella morganii, which is sensitive to many medication, call ID consult Prognosis is extremely poor. In this functionally poor patient. Family or looking for ECF placement. Review of Systems CONSTITUTIONAL: No fever, no malaise, no fatigue. HEENT: No recent visual problems or hearing problems. Denied any sore throat. CARDIOVASCULAR: No orthopnea, PND, no palpitations, no syncope. PULMONARY: No shortness of breath, no cough, no hemoptysis. GASTROINTESTINAL: . Normoactive bowel sounds. NEUROLOGICAL: No headaches, no weakness, no numbness. HEMATOLOGICAL: Denies any bleeding or petechiae. GENITOURINARY: Denies any burning micturition, frequency, or urgency. MUSCULOSKELETAL/RHEUMATOLOGICAL: Denies any joint pain, swelling, or any muscle pain. ENDOCRINE: Denies any polyuria or polydipsia. Medication are reviewed and includes: Allopurinol 100 mg, Norvasc 5 mg, calcium caronate 1 tb, ford syrup 5ml, cholestyramine 4 mg, cospot 1 drop, pepcid 20 mg, heparin 5000 Unit, norco 5-325 mg, xalatan 0.005%, synthroid 50 mcg, flagyl 500 mg, nitrogglycerin 0.4 mg, pravachol 40 mg, primidone 50 mg, Propylene Glycol 1 drop , Sodium chloride , po vancomycin 250 mg Objective - Vital Signs Vital signs: Vital Signs Temp 98.4 F 04/12/18 20:00 Pulse 103 H 04/13/18 04:00 Resp 18 04/13/18 04:00 BP 138/74 04/13/18 04:00 Pulse Ox 92 L 04/13/18 04:00 Intake & Output 04/12/18 04/13/18 04/13/18 18:59 06:59 18:59 Intake Total 131.13 201.166 Output Total 50 5 Balance 81.13 196.166 Weight 45.5 kg 49 kg Intake: Intake, IV Titration 31.13 201.166 Amount Heparin Sod,Pork in 0.45% 31.13 201.166 NaCl 25,000 unit In 0.45 % NaCl 1 500ml.bag @ 12 UNITS/KG/HR 14.15 mls/hr IV .Q24H TIFFANY Rx#: [id number] Oral 100 Output: Stool 5 Urine/Stool Mix 50 Other: Voiding Method Bedpan Bedpan Diaper Diaper # Voids 2 2 # Bowel Movements 1 - Exam GENERAL: The patient is alert and oriented x3, not in any acute distress. Elderly lady who looks thin HEENT: Pupils are round and equally reacting to light. EOMI. No scleral icterus. No conjunctival pallor. Normocephalic, atraumatic. No pharyngeal erythema. No thyromegaly. -CARDIOVASCULAR: S1 and S2 present. No murmurs, rubs, or gallops. chest wall tenderness in the middle anteriorly PULMONARY: Chest is clear to auscultation, no wheezing or crackles. ABDOMEN: Soft, nontender, nondistended, normoactive bowel sounds. No palpable organomegaly. -MUSCULOSKELETAL: No joint swelling or deformity. It looks like she has stiffness all over her body and she has difficulty moving her hand and feet joints EXTREMITIES: No cyanosis, clubbing, or pedal edema. NEUROLOGICAL: Gross neurological examination did not reveal any focal deficits. SKIN: No rashes. - Labs CBC & Chem 7: 04/13/18 06:21 04/13/18 06:21 Labs: Abnormal Lab Results - Last 24 Hours (Table) 04/12/18 04/12/18 04/12/18 Range/Units 06:35 19:32 19:32 WBC (3.8-10.6) k/uL RBC (3.80-5.40) m/uL Hgb (11.4-16.0) gm/dL Hct (34.0-46.0) % Neutrophils # (1.3-7.7) k/uL Lymphocytes # (1.0-4.8) k/uL D-Dimer 0.81 H (<0.60) mg/L FEU Chloride (98-107) mmol/L Carbon Dioxide (22-30) mmol/L BUN (7-17) mg/dL Creatinine (0.52-1.04) mg/dL Stool Occult Blood Positive H (Negative) C. difficile (EIA) Intrp Positive A (Negative) 04/12/18 04/13/18 04/13/18 Range/Units 21:13 06:21 06:21 WBC 11.1 H (3.8-10.6) k/uL RBC 3.41 L 3.46 L (3.80-5.40) m/uL Hgb 10.2 L 10.1 L (11.4-16.0) gm/dL Hct 30.6 L 31.4 L (34.0-46.0) % Neutrophils # 9.0 H (1.3-7.7) k/uL Lymphocytes # 0.7 L (1.0-4.8) k/uL D-Dimer (<0.60) mg/L FEU Chloride 115 H (98-107) mmol/L Carbon Dioxide 12 L (22-30) mmol/L BUN 33 H (7-17) mg/dL Creatinine 1.62 H (0.52-1.04) mg/dL Stool Occult Blood (Negative) C. difficile (EIA) Intrp (Negative) Microbiology - Last 24 Hours (Table) 04/10/18 22:35 Urine Culture - Final Urine,Voided Morganella morganii Assessment and Plan Assessment: Syncope Chest pain, rule out acute coronary syndrome with elevated troponins Possible acute blood loss anemia, possible GI bleed Urinary tract infection, present on admission C. diff colitis, present on admission History of CVA/TIA History of COPD Dementia GERD History of peptic ulcer disease and GI bleed Hyperlipidemia Essential hypertension Bilateral macular degeneration and patient is legally blind Chronic UTI Chronic low back pain Hypothyroidism Gout of both hands and feet Plan: This is a pleasant 87 years old female who presents because of syncope and chest pain.Labs and medication were resumed. Cardiology consultation. We'll check serial cardiac enzymes and EKG. we'll call GI consult for positive FOBT. ID consult for UTI and Cdiff. Continue with antibiotic as per ID team. VQ scan is low probability for PE Continue same treatment. Continue with symptomatic treatment. Resume home medication. Monitor lytes and vitals. DVT and GI prophylaxis. Further recommendations is based on the clinical course of the patient DVT prophylaxis: Subcutaneous heparin GI Prophylaxis: Pepcid PT/OT: Pending as per staff family/Daughter are looking for placement. code status: NO code per family request per staff. Prognosis is extremely poor
[2018-04-13 18:23] LABS: Basophils % (A) 0 %; Eosinophils % (A) 0 %; HCT 34.7 % (34.0-46.0); HGB 10.8 gm/dL (11.4-16.0); Hypochromasia Slight; Lymphocytes # (A) 0.6 k/uL (1.0-4.8); Lymphocytes % (A) 5 %; MCHC 31.2 g/dL (31.0-37.0); MCV 93.1 fL (80.0-100.0); Mean Platelet Volume 6.9; Monocytes # (A) 0.6 k/uL (0-1.0); Monocytes % (A) 5 %; Neutrophils # (A) 10.8 k/uL (1.3-7.7); Neutrophils % (A) 88 %; Platelet Count 207 k/uL (150-450); RBC 3.72 m/uL (3.80-5.40); RDW 14.2 % (11.5-15.5); WBC 12.2 k/uL (3.8-10.6)
[2018-04-13] MEDS ORDERED: SODIUM CHLORIDE 0.9% 500 ML 500 ML IV ONE (19:51)
[2018-04-13] MEDS: PRIMIDONE 50 MG TAB PO SCH (21:07)
[2018-04-13] MEDS: CHOLESTYRAMINE (WITH SUGAR) 4 GM PACKET PO SCH (21:07)
[2018-04-13] MEDS ORDERED: SODIUM CHLORIDE 0.9% 1,000 ML IV ONE (22:33)
[2018-04-13] MEDS: LATANOPROST 0.005% OPHTH DROPS 2.5 ML BTL BOTH EYES SCH (22:43)
[2018-04-14] MEDS: metroNIDAZOLE 500 MG TAB PO SCH ×3 (00:13→16:36)
[2018-04-14] MEDS: VANCOMYCIN ORAL SOLUTION 250 MG/5 ML BOTTLE PO SCH ×5 (00:13→23:13)
[2018-04-14] MEDS: CHERRY FLAVOR 60 ML BOTTLE PO SCH ×5 (00:13→23:14)
[2018-04-14] MEDS: HEPARIN SODIUM,PORCINE 5,000 UNIT/ML 1 ML VIAL SQ SCH ×4 (00:14→23:13)
[2018-04-14] MEDS: CALCIUM CARB-VIT D 500MG-200UN 1 EACH TAB PO SCH ×2 (06:00→16:36)
[2018-04-14] MEDS: LEVOTHYROXINE 50 MCG TAB PO SCH (06:00)
[2018-04-14 06:10] LABS: Basophils % (A) 0 %; Eosinophils % (A) 0 %; HCT 31.3 % (34.0-46.0); HGB 9.8 gm/dL (11.4-16.0); Hypochromasia Slight; Lymphocytes # (A) 0.7 k/uL (1.0-4.8); Lymphocytes % (A) 7 %; MCHC 31.4 g/dL (31.0-37.0); MCV 92.5 fL (80.0-100.0); Mean Platelet Volume 7.7; Monocytes # (A) 0.6 k/uL (0-1.0); Monocytes % (A) 5 %; Neutrophils # (A) 8.9 k/uL (1.3-7.7); Neutrophils % (A) 86 %; Platelet Count 202 k/uL (150-450); RBC 3.39 m/uL (3.80-5.40); RDW 14.5 % (11.5-15.5); WBC 10.3 k/uL (3.8-10.6)
[2018-04-14 06:26] LABS: Calcium 8.1 mg/dL (8.4-10.2); Potassium 4.2 mmol/L (3.5-5.1)
[2018-04-14] MEDS: ASPIRIN 81 MG PO SCH (08:18)
[2018-04-14] MEDS: CLOPIDOGREL 75 MG TAB PO SCH (08:18)
[2018-04-14] MEDS: PRAVASTATIN SODIUM 40 MG TAB PO SCH (08:18)
[2018-04-14] MEDS: ALLOPURINOL 100 MG TAB PO SCH (08:18)
[2018-04-14] MEDS: FAMOTIDINE 20 MG TAB PO SCH (08:23)
[2018-04-14] MEDS: CHOLESTYRAMINE (WITH SUGAR) 4 GM PACKET PO SCH ×2 (08:23→21:18)
[2018-04-14] MEDS: DORZOLAMIDE-TIMOLOL 2.23%/0.68 10ML BTL BOTH EYES SCH ×2 (08:23→21:18)
--- NOTE | 2018-04-14 08:36 | P.PN ---
Subjective This is a pleasant 87 years old female with past medical history of COPD, CVA/ TIA, dementia, GERD, GI bleed, hyperlipidemia, essential hypertension, bilateral macular degeneration and she is legally blind, chronic UTI with chronic low back pain. Hypothyroidism, bilateral gout of the hands and feet. The presents because of syncope twice. 2 days as per patient. Also patient has been complaining from central chest pain about 1 week duration. The pain is reproducible and nonradiating and is mildly increased with cough. However patient denies any cough currently. In the emergency room her troponins were elevated 0.04-0.06. Vitas looks stable. As per staff patient Daughter is looking for placement to group home. filter worker consult 04/12/2018 Patient lying in bed, clinically the same. Still complaining of from chest pain and tenderness. However no more episodes of syncope. No dyspnea. Her blood pressure was on the low side this morning 96/60, however is still quite close looks stable and patient is afebrile. Creatinine is basically the same from 1.4 to 1.3, and cartilages been consulted for elevated troponins. We will order echocardiogram. Patient has evidence of osteopenia on the x-rays. She will benefit from vitamin D and calcium. Urine cultures growing gram-negative bacilli, we are going to change antibiotics to Levaquin, patient is ALLERGIC to penicillin. And decrease IV fluids from 75-50 mL per hour Still pending placement, as per family request. Given her comorbidities and advanced age, she is very high risk for complication with poor prognosis 04/13/18 Patient still looks generally weak and with malaise. She still complaining from some chest pain however no dyspnea. Vitas is stable except for little tachycardia since admission Patient is having diarrhea with about 3-4 bowel movements during the night and same during the day. Patient is positive for C. diff. And patient was started on Flagyl, we will add by mouth vancomycin. As well as positive FOBT. Hemoglobin with mild drop from 12 to 10.0, however at stable obtained. She had elevated d-dimer spot with VQ scan: Low probability for PE. Heparin drip was held due to drop in hemoglobin with blood in stool. Monitor hemoglobin for now and will call for GI consult. WBC came back to normal today 10.3 K. Creatinine slightly elevated from 1.3 to 1.6, her blood pressures at slow at certain points so we're going to hold Norvasc for now and put patient on IV fluids at 75 mL/h. Urine culture is positive for Morganella morganii, which is sensitive to many medication, call ID consult Prognosis is extremely poor. In this functionally poor patient. Family or looking for ECF placement 04/14/2018 Patient symptoms and illness mostly related to her C. diff colitis, which is severe infection. Patient was hypotensive yesterday and she needed IV boluses, however she is more awake today. Patient complains from generalized abdominal pain and tenderness. We'll do abdominal x-ray. Patient has positive FOBT. GI consult is appreciated, patient does not need colonoscopy currently as per their recommendation. Patient heparin drip was stopped and placed on subcutaneous heparin for positive occult blood in his stool and slight troponin hemoglobin. Hemoglobin today is 9.8. She has UTI with positive UC, as been fully treated as per ID team. No need for further systemic antibiotics because this might make her C. diff force. He still have diarrhea. Continue with Flagyl and by mouth vancomycin currently. Cardiology follow-up is appreciated. Creatinine is stable at 1.6, patient needs ECF placement as per family. Prognosis is poor Review of Systems CONSTITUTIONAL: No fever, no malaise, no fatigue. HEENT: No recent visual problems or hearing problems. Denied any sore throat. CARDIOVASCULAR: No orthopnea, PND, no palpitations, no syncope. PULMONARY: No shortness of breath, no cough, no hemoptysis. GASTROINTESTINAL: . Normoactive bowel sounds. NEUROLOGICAL: No headaches, no weakness, no numbness. HEMATOLOGICAL: Denies any bleeding or petechiae. GENITOURINARY: Denies any burning micturition, frequency, or urgency. MUSCULOSKELETAL/RHEUMATOLOGICAL: Denies any joint pain, swelling, or any muscle pain. ENDOCRINE: Denies any polyuria or polydipsia. Medication are reviewed and includes: Allopurinol 100 mg, Norvasc 5 mg, calcium caronate 1 tb, ford syrup 5ml, cholestyramine 4 mg, cospot 1 drop, pepcid 20 mg, heparin 5000 Unit, norco 5-325 mg, xalatan 0.005%, synthroid 50 mcg, flagyl 500 mg, nitrogglycerin 0.4 mg, pravachol 40 mg, primidone 50 mg, Propylene Glycol 1 drop , Sodium chloride , po vancomycin 250 mg Objective - Vital Signs Vital signs: Vital Signs Temp 98.0 F 04/13/18 23:22 Pulse 94 04/14/18 03:34 Resp 15 04/14/18 03:34 BP 133/67 04/14/18 03:34 Pulse Ox 97 04/14/18 03:34 Intake & Output 04/13/18 04/14/18 04/14/18 18:59 06:59 18:59 Intake Total 500 Output Total 5 3 Balance 495 -3 Weight 49 kg Intake: Intake, IV Titration 500 Amount Levofloxacin 250Mg-D5w 50 Pmx 250 mg In Dextrose/ Water 1 50ml.bag @ 50 mls /hr IVPB DAILY TIFFANY Rx#: [id number] Sodium Chloride 0.9% 1, 350 000 ml @ 75 mls/hr IV . [id number] TIFFANY Rx#:[id number] metroNIDAZOLE-NS PMX 500 100 mg In Saline 1 100ml.bag @ 100 mls/hr IVPB Q8HR TIFFANY Rx#:[id number] Output: Urine 2 Stool 3 3 Other: Voiding Method Bedpan Diaper Diaper # Voids 1 # Bowel Movements 3 1 - Exam GENERAL: The patient is alert and oriented x3, not in any acute distress. Elderly lady who looks thin HEENT: Pupils are round and equally reacting to light. EOMI. No scleral icterus. No conjunctival pallor. Normocephalic, atraumatic. No pharyngeal erythema. No thyromegaly. -CARDIOVASCULAR: S1 and S2 present. No murmurs, rubs, or gallops. chest wall tenderness in the middle anteriorly PULMONARY: Chest is clear to auscultation, no wheezing or crackles. ABDOMEN: Soft, nontender, nondistended, normoactive bowel sounds. No palpable organomegaly. -MUSCULOSKELETAL: No joint swelling or deformity. It looks like she has stiffness all over her body and she has difficulty moving her hand and feet joints EXTREMITIES: No cyanosis, clubbing, or pedal edema. NEUROLOGICAL: Gross neurological examination did not reveal any focal deficits. SKIN: No rashes. - Labs CBC & Chem 7: 04/14/18 05:22 04/14/18 05:22 Labs: Abnormal Lab Results - Last 24 Hours (Table) 04/13/18 04/14/18 04/14/18 Range/Units 18:06 05:22 05:22 WBC 12.2 H (3.8-10.6) k/uL RBC 3.72 L 3.39 L (3.80-5.40) m/uL Hgb 10.8 L 9.8 L (11.4-16.0) gm/dL Hct 31.3 L (34.0-46.0) % Neutrophils # 10.8 H 8.9 H (1.3-7.7) k/uL Lymphocytes # 0.6 L 0.7 L (1.0-4.8) k/uL Chloride 117 H (98-107) mmol/L Carbon Dioxide 10 L (22-30) mmol/L BUN 32 H (7-17) mg/dL Creatinine 1.62 H (0.52-1.04) mg/dL Calcium 8.1 L (8.4-10.2) mg/dL Assessment and Plan Assessment: Syncope Chest pain, rule out acute coronary syndrome with elevated troponins Possible acute blood loss anemia, possible GI bleed Urinary tract infection, present on admission C. diff colitis, present on admission History of CVA/TIA History of COPD Dementia GERD History of peptic ulcer disease and GI bleed Hyperlipidemia Essential hypertension Bilateral macular degeneration and patient is legally blind Chronic UTI Chronic low back pain Hypothyroidism Gout of both hands and feet Deconditioning Plan: This is a pleasant 87 years old female who presents because of syncope and chest pain.Labs and medication were resumed. Cardiology consultation. We'll check serial cardiac enzymes and EKG. we'll call GI consult for positive FOBT. ID consult for UTI and Cdiff. Continue with antibiotic as per ID team. VQ scan is low probability for PE Continue same treatment. Continue with symptomatic treatment. Resume home medication. Monitor lytes and vitals. DVT and GI prophylaxis. Further recommendations is based on the clinical course of the patient DVT prophylaxis: Subcutaneous heparin GI Prophylaxis: Pepcid PT/OT: Pending as per staff family/Daughter are looking for placement. code status: NO code per family request per staff. Prognosis is extremely poor
--- NOTE | 2018-04-14 09:22 | XR ---
Abdomen HISTORY: Chronic kidney disease, urinary tract infection, painful micturition Frontal view of the abdomen on [address] abdomen pelvis 08/14/2016 There is a scoliosis. Dense calcification present within the visualized aorta and iliac vessels. Bone mineralization is reduced. Lung bases are clear. There are overlying cardiac leads. No evident pneum operitoneum or bowel obstruction. Injection granuloma are noted in the gluteal regions. IMPRESSION: No acute abnormalities evident.
[2018-04-14 09:34] LABS: Iron Saturation 2.61 (12.00-45.00)
--- NOTE | 2018-04-14 10:18 | P.PN ---
Subjective Progress Note Date: 04/14/18 Principal diagnosis: C. diff colitis heme-positive stool Passing nonbloody diarrhea. Denies abdominal pain. Afebrile. Abdominal x-ray no acute abnormality. White count 10.3. Hemoglobin 0.8. Objective - Vital Signs Vital signs: Vital Signs Temp 98.1 F 04/14/18 08:00 Pulse 97 04/14/18 08:00 Resp 18 04/14/18 08:00 BP 124/68 04/14/18 08:00 Pulse Ox 97 04/14/18 08:00 Intake & Output 04/13/18 04/14/18 04/14/18 18:59 06:59 18:59 Intake Total 500 240 Output Total 5 3 1 Balance 495 -3 239 Weight 49 kg Intake: Intake, IV Titration 500 Amount Levofloxacin 250Mg-D5w 50 Pmx 250 mg In Dextrose/ Water 1 50ml.bag @ 50 mls /hr IVPB DAILY TIFFANY Rx#: [id number] Sodium Chloride 0.9% 1, 350 000 ml @ 75 mls/hr IV . [id number] TIFFANY Rx#:[id number] metroNIDAZOLE-NS PMX 500 100 mg In Saline 1 100ml.bag @ 100 mls/hr IVPB Q8HR TIFFANY Rx#:[id number] Oral 240 Output: Urine 2 Stool 3 3 1 Other: Voiding Method Bedpan Diaper Diaper Diaper # Voids 1 # Bowel Movements 3 1 - Exam General appearance: The patient is alert, oriented, in no acute distress. HET: Head is normocephalic and atraumatic. Pupils are equal and reactive. Oropharynx is clear without lesions. Neck: Supple without lymphadenopathy. Trachea midline. Heart: S1 S2. Regular rate and rhythm. Lungs: No crackles or wheezes are heard. Abdomen: Soft, nontender, nondistended with bowel sounds. No peritoneal signs. No palpable organomegaly or masses. Extremities: Normal skin color and turgor. No cyanosis, rash, ulceration, clubbing, or edema. Radial and pedal pulses are 2/4 bilaterally. Neurological: No focal deficits. Strength and sensation are grossly intact. - Labs CBC & Chem 7: 04/14/18 05:22 04/14/18 05:22 Labs: Abnormal Lab Results - Last 24 Hours (Table) 04/13/18 04/13/18 04/14/18 Range/Units 06:21 18:06 05:22 WBC 12.2 H (3.8-10.6) k/uL RBC 3.72 L (3.80-5.40) m/uL Hgb 10.8 L (11.4-16.0) gm/dL Hct (34.0-46.0) % Neutrophils # 10.8 H (1.3-7.7) k/uL Lymphocytes # 0.6 L (1.0-4.8) k/uL Chloride 117 H (98-107) mmol/L Carbon Dioxide 10 L (22-30) mmol/L BUN 32 H (7-17) mg/dL Creatinine 1.62 H (0.52-1.04) mg/dL Calcium 8.1 L (8.4-10.2) mg/dL Iron 6 L (50-170) ug/dL Iron Saturation 2.61 L (12.00-45.00) 04/14/18 Range/Units 05:22 WBC (3.8-10.6) k/uL RBC 3.39 L (3.80-5.40) m/uL Hgb 9.8 L (11.4-16.0) gm/dL Hct 31.3 L (34.0-46.0) % Neutrophils # 8.9 H (1.3-7.7) k/uL Lymphocytes # 0.7 L (1.0-4.8) k/uL Chloride (98-107) mmol/L Carbon Dioxide (22-30) mmol/L BUN (7-17) mg/dL Creatinine (0.52-1.04) mg/dL Calcium (8.4-10.2) mg/dL Iron (50-170) ug/dL Iron Saturation (12.00-45.00) Assessment and Plan (1) C. difficile colitis Current Visit: Yes Status: Acute Code(s): A04.72 - ENTEROCOLITIS D/T CLOSTRIDIUM DIFFICILE, NOT SPCF RECUR SNOMED Code(s): 643840130 (2) Positive occult stool blood test Current Visit: Yes Status: Acute Code(s): R19.5 - OTHER FECAL ABNORMALITIES SNOMED Code(s): 31278524 (3) Dementia Current Visit: Yes Status: Chronic Code(s): F03.90 - UNSPECIFIED DEMENTIA WITHOUT BEHAVIORAL DISTURBANCE SNOMED Code(s): 03518397 Plan: 1. Continue vancomycin and Flagyl. 2. Low fiber diet. Yogurt with meals. 3. Clinically no evidence of active bleeding inpatient endoscopic exams not planned at this time. 4. We'll continue to follow with you. Assessment and plan a care discussed with Dr. Avila
--- NOTE | 2018-04-14 15:42 | P.PN ---
Subjective Progress Note Date: 04/14/18 This is a pleasant 87-year-old female past medical history significant for COPD, hypertension, dyslipidemia, prior CVA, legally blind extremely hard of hearing. We have been consulted to see her secondary to syncopal episodes. She has since been diagnosed with C. diff in the stool. D- dimer was obtained and was mildly elevated, VQ scan shows low probability for PE. 2-D echocardiogram and Doppler study obtained reveals preserved left ventricular systolic function with ejection fraction 55-60%. Orthostatic vital signs it not been obtained secondary to profound weakness and inability to stand the patient. He was seen and examined today, mildly confused, states that she does still feel intermittent short of breath. Arrangements are being made for her to go to an ECF today. Objective - Vital Signs Vital signs: Vital Signs Temp 98.2 F 04/14/18 11:31 Pulse 100 04/14/18 11:31 Resp 18 04/14/18 08:00 BP 97/59 04/14/18 11:31 Pulse Ox 94 L 04/14/18 11:31 Intake & Output 04/13/18 04/14/18 04/14/18 18:59 06:59 18:59 Intake Total 500 240 Output Total 5 3 2 Balance 495 -3 238 Weight 49 kg Intake: Intake, IV Titration 500 Amount Levofloxacin 250Mg-D5w 50 Pmx 250 mg In Dextrose/ Water 1 50ml.bag @ 50 mls /hr IVPB DAILY TIFFANY Rx#: [id number] Sodium Chloride 0.9% 1, 350 000 ml @ 75 mls/hr IV . [id number] TIFFANY Rx#:[id number] metroNIDAZOLE-NS PMX 500 100 mg In Saline 1 100ml.bag @ 100 mls/hr IVPB Q8HR TIFFANY Rx#:[id number] Oral 240 Output: Urine 2 Stool 3 3 2 Other: Voiding Method Bedpan Diaper Diaper Diaper # Voids 1 # Bowel Movements 3 1 - Exam PHYSICAL EXAMINATION: GENERAL: 87-year-old female in no acute distress at the time of my examination HEENT: Head is atraumatic, normocephalic. Pupils equal, round. Sclera anicteric. Conjunctiva are clear. Mucous membranes of the mouth are moist. Neck is supple. There is no elevated jugular venous pressure. No carotid bruit is heard. HEART EXAMINATION: Heart S1, S2 normal. No murmur or gallop heard. CHEST EXAMINATION: Lungs are clear to auscultation and precussion. No chest wall tenderness is noted on palpation or with deep breathing. ABDOMEN: Soft, nontender. Bowel sounds are heard. No organomegaly noted. EXTREMITIES: 2+ peripheral pulses with no evidence of peripheral edema and no calf tenderness noted. NEUROLOGIC patient is awake, alert and oriented X2. . - Labs CBC & Chem 7: 04/14/18 05:22 04/14/18 05:22 Labs: Abnormal Lab Results - Last 24 Hours (Table) 04/13/18 04/13/18 04/14/18 Range/Units 06:21 18:06 05:22 WBC 12.2 H (3.8-10.6) k/uL RBC 3.72 L (3.80-5.40) m/uL Hgb 10.8 L (11.4-16.0) gm/dL Hct (34.0-46.0) % Neutrophils # 10.8 H (1.3-7.7) k/uL Lymphocytes # 0.6 L (1.0-4.8) k/uL Chloride 117 H (98-107) mmol/L Carbon Dioxide 10 L (22-30) mmol/L BUN 32 H (7-17) mg/dL Creatinine 1.62 H (0.52-1.04) mg/dL Calcium 8.1 L (8.4-10.2) mg/dL Iron 6 L (50-170) ug/dL Iron Saturation 2.61 L (12.00-45.00) 04/14/18 Range/Units 05:22 WBC (3.8-10.6) k/uL RBC 3.39 L (3.80-5.40) m/uL Hgb 9.8 L (11.4-16.0) gm/dL Hct 31.3 L (34.0-46.0) % Neutrophils # 8.9 H (1.3-7.7) k/uL Lymphocytes # 0.7 L (1.0-4.8) k/uL Chloride (98-107) mmol/L Carbon Dioxide (22-30) mmol/L BUN (7-17) mg/dL Creatinine (0.52-1.04) mg/dL Calcium (8.4-10.2) mg/dL Iron (50-170) ug/dL Iron Saturation (12.00-45.00) Assessment and Plan Plan: Assessment and plan #1 syncope, rule out cardiac causes. Rule out possible pulmonary embolism. #2 abnormal troponins, could be secondary to acute coronary syndrome, patient did have an episode of chest discomfort. EKG shows no acute changes. Need to rule out possibility of pulmonary embolism. #3 history of CVA/TIA #4 COPD #5 dementia #6 GERD #7 hyperlipidemia #8 hypertension #9 macular degeneration, patient is legally blind #10 chronic UTI #11 hypothyroidism Plan From cardiology's perspective patient may transfer to [facility]. We will make a follow-up appointment as an outpatient. Follow now on a when necessary basis. DNP note has been reviewed, I agree with a documented findings and plan of care. Patient was seen and examined.
[2018-04-14] MEDS: LATANOPROST 0.005% OPHTH DROPS 2.5 ML BTL BOTH EYES SCH (21:18)
[2018-04-14] MEDS: SODIUM CHLORIDE 0.9% 1,000 ML IV SCH (21:18)
[2018-04-14] MEDS: PRIMIDONE 50 MG TAB PO SCH (21:19)
--- NOTE | 2018-04-14 22:03 | PN ---
PROGRESS NOTE DATE OF SERVICE: 04/14/2018 REASON FOR FOLLOWUP: C difficile colitis. INTERVAL HISTORY: The patient is currently afebrile. Diarrhea has slightly decreased in frequency per the RN. The patient herself denies having abdominal pain. No nausea, vomiting, chest pain, shortness of breath or cough. PHYSICAL EXAMINATION: Blood pressure is 123/74 with a pulse of 75, temperature 97.6. She is 94% on 2 L nasal cannula. General description is an elderly female lying in bed in no distress. RESPIRATORY SYSTEM: Unlabored breathing. Clear to auscultation anteriorly. HEART: S1, S2. Regular rate and rhythm. ABDOMEN: Soft. No tenderness. LABS: Hemoglobin 9.8, white count 10.3 with a BUN of 32, creatinine 1.62. DIAGNOSTIC IMPRESSION AND PLAN: 1. Patient with Morganella morganii urinary tract infection, adequately treated. 2. Patient with Clostridium difficile colitis. The patient will be treated with vancomycin 250 p.o. q.6 hours along with Questran as needed for symptomatic relief. Discontinue the Flagyl. Continue with supportive care. MMODL / IJN: [id number] /
[2018-04-15] MEDS: SODIUM CHLORIDE 0.9% 1,000 ML IV SCH ×3 (03:26→23:03)
[2018-04-15] MEDS: FERROUS SULFATE 325 MG TAB PO SCH ×3 (03:26→17:22)
[2018-04-15] MEDS: LEVOTHYROXINE 50 MCG TAB PO SCH (06:23)
[2018-04-15] MEDS: VANCOMYCIN ORAL SOLUTION 250 MG/5 ML BOTTLE PO SCH ×4 (06:23→23:07)
[2018-04-15] MEDS: CHERRY FLAVOR 60 ML BOTTLE PO SCH ×4 (06:23→23:07)
[2018-04-15] MEDS: CALCIUM CARB-VIT D 500MG-200UN 1 EACH TAB PO SCH ×2 (08:30→17:22)
[2018-04-15] MEDS: ALLOPURINOL 100 MG TAB PO SCH (08:32)
[2018-04-15] MEDS: CLOPIDOGREL 75 MG TAB PO SCH (08:32)
[2018-04-15] MEDS: ASPIRIN 81 MG PO SCH (08:32)
[2018-04-15] MEDS: HEPARIN SODIUM,PORCINE 5,000 UNIT/ML 1 ML VIAL SQ SCH ×3 (08:32→23:07)
[2018-04-15] MEDS: CYANOCOBALAMIN 1,000 MCG/ML 1 ML VIAL IM SCH (08:32)
[2018-04-15] MEDS: DORZOLAMIDE-TIMOLOL 2.23%/0.68 10ML BTL BOTH EYES SCH ×2 (08:33→20:34)
[2018-04-15] MEDS: FAMOTIDINE 20 MG TAB PO SCH (08:33)
[2018-04-15] MEDS: PRAVASTATIN SODIUM 40 MG TAB PO SCH (08:33)
--- NOTE | 2018-04-15 08:52 | P.PN ---
Subjective This is a pleasant 87 years old female with past medical history of COPD, CVA/ TIA, dementia, GERD, GI bleed, hyperlipidemia, essential hypertension, bilateral macular degeneration and she is legally blind, chronic UTI with chronic low back pain. Hypothyroidism, bilateral gout of the hands and feet. The presents because of syncope twice. 2 days as per patient. Also patient has been complaining from central chest pain about 1 week duration. The pain is reproducible and nonradiating and is mildly increased with cough. However patient denies any cough currently. In the emergency room her troponins were elevated 0.04-0.06. Vitas looks stable. As per staff patient Daughter is looking for placement [facility] consult 04/12/2018 Patient lying in bed, clinically the same. Still complaining of from chest pain and tenderness. However no more episodes of syncope. No dyspnea. Her blood pressure was on the low side this morning 96/60, however is still quite close looks stable and patient is afebrile. Creatinine is basically the same from 1.4 to 1.3, and cartilages been consulted for elevated troponins. We will order echocardiogram. Patient has evidence of osteopenia on the x-rays. She will benefit from vitamin D and calcium. Urine cultures growing gram-negative bacilli, we are going to change antibiotics to Levaquin, patient is ALLERGIC to penicillin. And decrease IV fluids from 75-50 mL per hour Still pending placement, as per family request. Given her comorbidities and advanced age, she is very high risk for complication with poor prognosis 04/13/18 Patient still looks generally weak and with malaise. She still complaining from some chest pain however no dyspnea. Vitas is stable except for little tachycardia since admission Patient is having diarrhea with about 3-4 bowel movements during the night and same during the day. Patient is positive for C. diff. And patient was started on Flagyl, we will add by mouth vancomycin. As well as positive FOBT. Hemoglobin with mild drop from 12 to 10.0, however at stable obtained. She had elevated d-dimer spot with VQ scan: Low probability for PE. Heparin drip was held due to drop in hemoglobin with blood in stool. Monitor hemoglobin for now and will call for GI consult. WBC came back to normal today 10.3 K. Creatinine slightly elevated from 1.3 to 1.6, her blood pressures at slow at certain points so we're going to hold Norvasc for now and put patient on IV fluids at 75 mL/h. Urine culture is positive for Morganella morganii, which is sensitive to many medication, call ID consult Prognosis is extremely poor. In this functionally poor patient. Family or looking for ECF placement 04/14/2018 Patient symptoms and illness mostly related to her C. diff colitis, which is severe infection. Patient was hypotensive yesterday and she needed IV boluses, however she is more awake today. Patient complains from generalized abdominal pain and tenderness. We'll do abdominal x-ray. Patient has positive FOBT. GI consult is appreciated, patient does not need colonoscopy currently as per their recommendation. Patient heparin drip was stopped and placed on subcutaneous heparin for positive occult blood in his stool and slight troponin hemoglobin. Hemoglobin today is 9.8. She has UTI with positive UC, as been fully treated as per ID team. No need for further systemic antibiotics because this might make her C. diff force. He still have diarrhea. Continue with Flagyl and by mouth vancomycin currently. Cardiology follow-up is appreciated. Creatinine is stable at 1.6, patient needs ECF placement as per family. Prognosis is poor 04/15/2018 Patient symptoms mostly related to her C. diff. Is unknown by patient are staff home any bowel movement she had its overnight. Patient still have nausea but her she is not sure of vomiting. She still complaining from abdominal pain and tenderness on the right side or the left side. Her blood pressure is improved so were lowering her fluids from 125 to 75/ hr. she saturating 97% on 2 L. Repeat labs are still pending, follow-up creatinine. Patient vitamin B12 was low normal yesterday and was started on replacement therapy. Review of Systems CONSTITUTIONAL: No fever, no malaise, no fatigue. HEENT: No recent visual problems or hearing problems. Denied any sore throat. CARDIOVASCULAR: No orthopnea, PND, no palpitations, no syncope. PULMONARY: No shortness of breath, no cough, no hemoptysis. GASTROINTESTINAL: . Normoactive bowel sounds. NEUROLOGICAL: No headaches, no weakness, no numbness. HEMATOLOGICAL: Denies any bleeding or petechiae. GENITOURINARY: Denies any burning micturition, frequency, or urgency. MUSCULOSKELETAL/RHEUMATOLOGICAL: Denies any joint pain, swelling, or any muscle pain. ENDOCRINE: Denies any polyuria or polydipsia. Medication are reviewed and includes: Allopurinol 100 mg, Norvasc 5 mg, calcium caronate 1 tb, ford syrup 5ml, cholestyramine 4 mg, cospot 1 drop, pepcid 20 mg, heparin 5000 Unit, norco 5-325 mg, xalatan 0.005%, synthroid 50 mcg, flagyl 500 mg, nitrogglycerin 0.4 mg, pravachol 40 mg, primidone 50 mg, Propylene Glycol 1 drop , Sodium chloride , po vancomycin 250 mg Objective - Vital Signs Vital signs: Vital Signs Temp 98.5 F 04/15/18 08:16 Pulse 95 04/15/18 08:16 Resp 20 04/15/18 08:16 BP 133/75 04/15/18 08:16 Pulse Ox 97 04/15/18 08:16 Intake & Output 04/14/18 04/15/18 04/15/18 18:59 06:59 18:59 Intake Total 240 550 120 Output Total 2 Balance 238 550 120 Intake: Oral 240 550 120 Output: Stool 2 Other: Voiding Method Diaper Diaper # Voids 2 4 # Bowel Movements 1 3 - Exam GENERAL: The patient is alert and oriented x3, not in any acute distress. Elderly lady who looks thin HEENT: Pupils are round and equally reacting to light. EOMI. No scleral icterus. No conjunctival pallor. Normocephalic, atraumatic. No pharyngeal erythema. No thyromegaly. -CARDIOVASCULAR: S1 and S2 present. No murmurs, rubs, or gallops. chest wall tenderness in the middle anteriorly PULMONARY: Chest is clear to auscultation, no wheezing or crackles. -ABDOMEN: Soft, right-sided abdominal tenderness with no rebound tenderness. nondistended, normoactive bowel sounds. No palpable organomegaly. -MUSCULOSKELETAL: No joint swelling or deformity. It looks like she has stiffness all over her body and she has difficulty moving her hand and feet joints EXTREMITIES: No cyanosis, clubbing, or pedal edema. NEUROLOGICAL: Gross neurological examination did not reveal any focal deficits. SKIN: No rashes. - Labs CBC & Chem 7: 04/14/18 05:22 04/14/18 05:22 Labs: Abnormal Lab Results - Last 24 Hours (Table) 10/28/18 Range/Units 06:21 Iron 6 L (50-170) ug/dL Iron Saturation 2.61 L (12.00-45.00) Assessment and Plan Assessment: Syncope Chest pain, rule out acute coronary syndrome with elevated troponins Possible acute blood loss anemia, possible GI bleed Urinary tract infection, present on admission C. diff colitis, present on admission History of CVA/TIA History of COPD Dementia GERD History of peptic ulcer disease and GI bleed Hyperlipidemia Essential hypertension Bilateral macular degeneration and patient is legally blind Chronic UTI Chronic low back pain Hypothyroidism Gout of both hands and feet Deconditioning Low vitamin B-12 Plan: This is a pleasant 87 years old female who presents because of syncope and chest pain.Labs and medication were resumed. Cardiology consultation. We'll check serial cardiac enzymes and EKG. we'll call GI consult for positive FOBT. ID consult for UTI and Cdiff. Continue with antibiotic as per ID team. VQ scan is low probability for PE Continue same treatment. Continue with symptomatic treatment. Resume home medication. Monitor lytes and vitals. DVT and GI prophylaxis. Further recommendations is based on the clinical course of the patient DVT prophylaxis: Subcutaneous heparin GI Prophylaxis: Pepcid PT/OT: Pending as per staff family/Daughter are looking for placement. code status: NO code per family request per staff. Prognosis is extremely poor
[2018-04-15 10:02] LABS: Basophils % (A) 0 %; Eosinophils # (A) 0.1 k/uL (0-0.7); Eosinophils % (A) 1 %; HGB 11.4 gm/dL (11.4-16.0); Lymphocytes # (A) 0.8 k/uL (1.0-4.8); Lymphocytes % (A) 10 %; MCH 29.1 pg (25.0-35.0); MCHC 31.8 g/dL (31.0-37.0); MCV 91.7 fL (80.0-100.0); Mean Platelet Volume 7.8; Monocytes # (A) 0.4 k/uL (0-1.0); Monocytes % (A) 4 %; Neutrophils # (A) 7.3 k/uL (1.3-7.7); Neutrophils % (A) 83 %; Platelet Count 198 k/uL (150-450); RBC 3.93 m/uL (3.80-5.40); RDW 14.5 % (11.5-15.5); WBC 8.8 k/uL (3.8-10.6)
[2018-04-15] MEDS: CHOLESTYRAMINE (WITH SUGAR) 4 GM PACKET PO SCH ×2 (10:36→20:34)
[2018-04-15 11:20] LABS: Calcium 8.9 mg/dL (8.4-10.2); Potassium 4.1 mmol/L (3.5-5.1)
[2018-04-15 11:37] VITALS: BMI 21.1
--- NOTE | 2018-04-15 12:09 | CDI ---
Last Revision, May 2017 Documentation Clarification Form Date: 04/15/2018 11:54:08 AM From: Jovana RossMacarioVIJAYA hernandez, CCDS Admit Date: 04/11/2018 12:38:00 AM Patient Name: Francy Dixon Visit Number: [id number] Discharge Date: ATTENTION: The Clinical Documentation Specialists (CDI) and [facility] Coding Staff appreciate your assistance in clarifying documentation. Please respond to the clarification below the line at the bottom and electronically sign. The CDI & [facility] Coding staff will review the response and follow-up if needed. Please note: Queries are made part of the Legal Health Record. If you have any questions, please contact the author of this message via ITS. Melo Ferrara MD: Admitted after an episode of chest discomfort & syncope, diagnosed with gm negative UTI & C Diff colitis. Per the cardiology consult: "It is likely that patient may have underlying coronary artery disease based on risk factors and age, we will treat medically at this time." Per H/P, Cardiology consult & subsequent progress notes: "Chest pain, rule out ACS w/elevated troponins. History/Risk Factors: COPD, TIA, Previous GI bleed, Hypertension, Hyperlipidemia , Hypothyroidism, Dementia. Clinical Indicators: Chest pain, elevated troponins with syncopal episode. VS: P 105, BP 166/91 LAB: Trops 0.052^^, 0.060^^, 0.048^^. BNP 3360, Cholesterol (119). Treatment: IV Heparin drip, Heparin sq, IV antibiotics for UTI & C Diff, IV Ms, IV Zofran Consults: Cardiology, Infectious Disease, GI Please clarify if the patient has been ruled in or ruled out for acute coronary syndrome with specificity: Coronary Artery Disease, ruled in or ruled out. o With or Without Myocardial Infarction, please specify type if ruled in: Non-ST elevation Type 2 VT (due to demand ischemia or secondary to ischemic imbalance) ST elevation (STEMI) Other (please specify) Clinically unable to determine as per cardiology note pt presentation could be secondary to acute coronary syndrome, but i am not sure which type. _ MTDD
[2018-04-15] MEDS: PRIMIDONE 50 MG TAB PO SCH (20:34)
[2018-04-15] MEDS: LATANOPROST 0.005% OPHTH DROPS 2.5 ML BTL BOTH EYES SCH (20:37)
--- NOTE | 2018-04-15 23:46 | PN ---
PROGRESS NOTE DATE OF SERVICE: 04/15/2018. REASON FOR FOLLOWUP: C difficile colitis. INTERVAL HISTORY: The patient is currently afebrile. She is breathing comfortably. No nausea or vomiting has been reported or any diarrhea. The patient herself is not a good historian. EXAMINATION: Blood pressure 134/82 with a pulse of 89, temperature 98.5. She is 97% on 2 L nasal cannula. General description is an elderly female up in the bed in no distress. Respiratory system: Unlabored breathing. Clear to auscultation anteriorly. Heart S1, S2. Regular rate and rhythm. Abdomen soft, no tenderness. EXTREMITIES: No edema of feet. LABS: Hemoglobin 11.4, white count 8.8 with a BUN of 26, creatinine 1.36. IMPRESSION/PLAN: Acute C difficile colitis. The patient seemed to have shown clinical improvement. She will continue with vancomycin 250 p.o. q.6 hours for another 10 days to finish course of therapy. Continue with supportive care. MMODL / IJN: [id number] /
[2018-04-16] MEDS: HYDROcodone/APAP 5-325MG 1 EACH TAB PO PRN (04:10)
[2018-04-16] MEDS: CALCIUM CARB-VIT D 500MG-200UN 1 EACH TAB PO SCH (06:16)
[2018-04-16] MEDS: FERROUS SULFATE 325 MG TAB PO SCH (06:17)
[2018-04-16] MEDS: VANCOMYCIN ORAL SOLUTION 250 MG/5 ML BOTTLE PO SCH ×2 (06:17→11:17)
[2018-04-16] MEDS: LEVOTHYROXINE 50 MCG TAB PO SCH (06:17)
[2018-04-16] MEDS: HEPARIN SODIUM,PORCINE 5,000 UNIT/ML 1 ML VIAL SQ SCH (08:01)
[2018-04-16] MEDS: CHERRY FLAVOR 60 ML BOTTLE PO SCH ×2 (08:01→11:12)
[2018-04-16] MEDS: DORZOLAMIDE-TIMOLOL 2.23%/0.68 10ML BTL BOTH EYES SCH (08:02)
[2018-04-16] MEDS: ALLOPURINOL 100 MG TAB PO SCH (08:02)
[2018-04-16] MEDS: CLOPIDOGREL 75 MG TAB PO SCH (08:02)
[2018-04-16] MEDS: CYANOCOBALAMIN 1,000 MCG/ML 1 ML VIAL IM SCH (08:02)
[2018-04-16] MEDS: ASPIRIN 81 MG PO SCH (08:02)
[2018-04-16] MEDS: FAMOTIDINE 20 MG TAB PO SCH (08:03)
[2018-04-16] MEDS: PRAVASTATIN SODIUM 40 MG TAB PO SCH (08:03)
--- NOTE | 2018-04-16 08:34 | CDI ---
Last Revision, May 2017 Documentation Clarification Form Date: 04/16/2018 8:28:04 AM From: Jovana VIJAYA Macario, CCDS Admit Date: 04/11/2018 12:38:00 AM Patient Name: Francy Dixon Visit Number: [id number] Discharge Date: ATTENTION: The Clinical Documentation Specialists (CDI) and [facility] Coding Staff appreciate your assistance in clarifying documentation. Please respond to the clarification below the line at the bottom and electronically sign. The CDI & [facility] Coding staff will review the response and follow-up if needed. Please note: Queries are made part of the Legal Health Record. If you have any questions, please contact the author of this message via ITS. Marlin Sierra MD: Admitted after an episode of chest discomfort & syncope, diagnosed with gm negative UTI & C Diff colitis. Per the cardiology consult: "It is likely that patient may have underlying coronary artery disease based on risk factors and age, we will treat medically at this time." Per H/P, Cardiology consult & subsequent progress notes: "Chest pain, rule out ACS w/elevated troponins. History/Risk Factors: COPD, TIA, Previous GI bleed, Hypertension, Hyperlipidemia , Hypothyroidism, Dementia. Clinical Indicators: Chest pain, elevated troponins with syncopal episode. VS: P 105, BP 166/91 LAB: Trops 0.052^^, 0.060^^, 0.048^^. BNP 3360, Cholesterol (119). Treatment: IV Heparin drip, Heparin sq, IV antibiotics for UTI & C Diff, IV Ms, IV Zofran Consults: Cardiology, Infectious Disease, GI Please clarify if the patient has been ruled in or ruled out for acute coronary syndrome with specificity: Coronary Artery Disease, ruled in or ruled out. With or Without Myocardial Infarction, please specify type if ruled in: o Non-ST elevation xx o Type 2 NM (due to demand ischemia or secondary to ischemic imbalance) o ST elevation (STEMI) o Other (please specify) o Clinically unable to determine NM ruled out MTDD
[2018-04-16] MEDS: CHOLESTYRAMINE (WITH SUGAR) 4 GM PACKET PO SCH (09:46)
[2018-04-16 10:34] LABS: Basophils % (A) 1 %; Eosinophils # (A) 0.1 k/uL (0-0.7); Eosinophils % (A) 1 %; HCT 33.2 % (34.0-46.0); HGB 10.4 gm/dL (11.4-16.0); Lymphocytes # (A) 1.1 k/uL (1.0-4.8); Lymphocytes % (A) 14 %; MCH 28.4 pg (25.0-35.0); MCHC 31.4 g/dL (31.0-37.0); MCV 90.5 fL (80.0-100.0); Mean Platelet Volume 7.9; Monocytes # (A) 0.4 k/uL (0-1.0); Monocytes % (A) 6 %; Neutrophils # (A) 5.8 k/uL (1.3-7.7); Neutrophils % (A) 77 %; Platelet Count 211 k/uL (150-450); RBC 3.66 m/uL (3.80-5.40); RDW 14.6 % (11.5-15.5); WBC 7.5 k/uL (3.8-10.6)
--- NOTE | 2018-04-16 13:56 | PN ---
PROGRESS NOTE DATE OF SERVICE: 04/16/2018 REASON FOR FOLLOWUP: C. diff colitis. INTERVAL HISTORY: The patient is currently afebrile. The patient remains to be pleasantly confused. Denies having any chest pain or shortness of breath. No cough, no abdominal pain, or any diarrhea. PHYSICAL EXAMINATION: Blood pressure is 114/82 with a pulse of 89, temperature 98.1. She is 97% on 2 L nasal cannula. General description is an elderly female, lying in bed in no distress. RESPIRATORY SYSTEM: Unlabored breathing, clear to auscultation anteriorly. HEART: S1, S2. Regular rate and rhythm. ABDOMEN: Soft, no tenderness. LABS: Hemoglobin is 10.4, white count of 7.5. DIAGNOSTIC IMPRESSION AND PLAN: Patient with acute Clostridium difficile colitis. Patient to continue with oral vancomycin 250 p.o. q.6 hours for another 10 days. No need for any Questran as apparently per the RN she did not have any bowel for the last foot 24-48 hours. Continue supportive care. MMODL / IJN: [id number] /
[2018-04-16 14:43] VITALS: TEMP 98.9
--- NOTE | 2018-04-16 14:46 | P.DS ---
Providers Date of admission: 04/11/18 00:38 Attending physician: Mary Lou Parrish Consults: 04/11/18 00:26 Consult Physician Urgent Consulting Provider: [facility] Consult Reason/Comments: Chest Pain; Elevated Trop Do you want consulting provider notified?: Yes 04/12/18 20:50 Consult Physician Urgent Consulting Provider: Melody Hernandez Consult Reason/Comments: cdiff positive Do you want consulting provider notified?: Yes, Notify in am Primary care physician: Prakash [facility] Course: This is a pleasant 87 years old female with past medical history of COPD, CVA/ TIA, dementia, GERD, GI bleed, hyperlipidemia, essential hypertension, bilateral macular degeneration and she is legally blind, chronic UTI with chronic low back pain. Hypothyroidism, bilateral gout of the hands and feet. she presents because of syncope twice. 2 days as per patient. Also patient has been complaining from central chest pain about 1 week duration. She has been evaluated by spindle [facility]ter home thought her symptoms could be due to acute coronary syndrome but need to rule out PE. D-dimer was obtained and was mildly elevated, VQ scan shows low probability for PE. 2-D echocardiogram and Doppler study obtained reveals preserved left ventricular systolic function with ejection fraction 55-60%. Patient showed significant improvement and on the day of discharge patient denies chest pain. No more syncope. The patient was cleared for discharge to [facility].atient has UTI on admission which was been adequately treated with antibiotic. Low vitamin B12 is been replaced. Patient was diagnosed with C. diff on admissions for several loose bowel movement bouts. She was treated with Flagyl and by mouth vancomycin. ID team evaluated the patient. Patient had bulimia and dehydration is been treated adequately with fluids. On the day of discharge patient showed significant interval improvement with her diarrhea is significantly improved. As per staff she doesn't have bowel movement since yesterday. She still complains from abdominal pain more on the right side than left side. Then improving. Patient tolerated diet well. IV fluids were stopped. She has been evaluated also by cone cleaner for positive occult blood in his stool which is mostly related to her C. diff as per GI team. Patient has been cleared for discharge by both infectious disease and cone cleaner teams. Leukocytosis improved to normal. Creatinine back to baseline. pt was cleared for discharge by GI ,ID and cardiology team as per staff. Patient problems and management plan was discussed with the patient. She verbalized understanding and acceptance She was found stable and can be discharged to ECF and guarded prognosis. Patient came from home however family/daughter preferred ECF placement. However she needs follow-up as an outpatient. appointment with GI is made for the pt and she agrees with it Gen: patient is a AAOx3, no distress CVS: S1-S2, RRR, no murmur Lungs: B/L CTA, no wheezing Abdomen: soft, no distention, mild right-sided tenderness, positive bowel sounds. No rebound tenderness or guarding Extremity: no leg edema or induration Time spent more than 35 minutes Patient Condition at Discharge: Serious Plan - Discharge Summary Discharge Rx Participant: No New Discharge Prescriptions: New Aspirin 81 mg PO DAILY #30 chew Calcium Carb-Vit D 500Mg-200Un [Oscal 500+D] 1 each PO BID-W/MEALS #60 tab Cholestyramine (with Sugar) [Questran Packet] 4 gm PO BID@1000,1999 5 Days # 10 packet Cyanocobalamin [Vitamin B-12] 1,000 mcg PO DAILY #30 tablet Ferrous Sulfate [Iron (65 MG Elemental)] 325 mg PO BID-W/MEALS #0 tab Nitroglycerin Sl Tabs [Nitrostat] 0.4 mg SUBLINGUAL Q5M PRN #30 tab PRN Reason: Chest Pain Vancomycin Oral Solution 250 mg PO Q6HR 7 Days #120 ml Continue Latanoprost [Xalatan 0.005%] 1 drop BOTH EYES HS Dorzolamide-Timol 2.23%/0.68% [Cosopt] 1 drop BOTH EYES BID Primidone [Mysoline] 50 mg PO HS Famotidine 20 mg PO BID Clopidogrel [Plavix] 75 mg PO DAILY Allopurinol [Zyloprim] 100 mg PO DAILY Pravastatin Sodium [Pravachol] 40 mg PO DAILY Levothyroxine Sodium [Synthroid] 50 mcg PO DAILY Propylene Glycol [Systane Complete] 1 drop BOTH EYES DAILY PRN PRN Reason: Dry Eye(S) HYDROcodone/APAP 5-325MG [Emerson 5-325] 1 tab PO BID #5 tab Discontinued amLODIPine [Norvasc] 5 mg PO DAILY Amoxic-Pot Clav 500-125 mg [Augmentin 500-125 mg] 1 tab PO Q12HR Discharge Medication List Allopurinol [Zyloprim] 100 mg PO DAILY 02/28/17 [History] Clopidogrel [Plavix] 75 mg PO DAILY 08/14/16 [History] Dorzolamide-Timol 2.23%/0.68% [Cosopt] 1 drop BOTH EYES BID 08/14/16 [History] Famotidine 20 mg PO BID 08/14/16 [History] Latanoprost [Xalatan 0.005%] 1 drop BOTH EYES HS 08/14/16 [History] Levothyroxine Sodium [Synthroid] 50 mcg PO DAILY 08/14/16 [History] Pravastatin Sodium [Pravachol] 40 mg PO DAILY 08/14/16 [History] Primidone [Mysoline] 50 mg PO HS 08/14/16 [History] Propylene Glycol [Systane Complete] 1 drop BOTH EYES DAILY PRN 04/10/18 [History ] Aspirin 81 mg PO DAILY #30 chew 04/16/18 [Rx] Calcium Carb-Vit D 500Mg-200Un [Oscal 500+D] 1 each PO BID-W/MEALS #60 tab 04/16 [Rx] Cholestyramine (with Sugar) [Questran Packet] 4 gm PO BID@1000,2000 5 Days #10 packet 04/16/18 [Rx] Cyanocobalamin [Vitamin B-12] 1,000 mcg PO DAILY #30 tablet 04/16/18 [Rx] Ferrous Sulfate [Iron (65 MG Elemental)] 325 mg PO BID-W/MEALS #0 tab 04/16/18 [ Rx] HYDROcodone/APAP 5-325MG [Emerson 5-325] 1 tab PO BID #5 tab 04/16/18 [Rx] Nitroglycerin Sl Tabs [Nitrostat] 0.4 mg SUBLINGUAL Q5M PRN #30 tab 04/16/18 [Rx ] Vancomycin Oral Solution 250 mg PO Q6HR 7 Days #120 ml 04/16/18 [Rx] Follow up Appointment(s)/Referral(s): Kori Cartagena MD [STAFF PHYSICIAN] - 04/23/18 12:00 pm (for positive c diff infection and positive occult blood in stool ) Prakash Adkins DO [Primary Care Provider] - 1-2 days Activity/Diet/Wound Care/Special Instructions: ECF Cardiac diet Activity is limited till you see your doctor Discharge Disposition: TRANSFER TO SNF/ECF
[2018-04-16 14:51] VITALS: BP 114/74; PULSE 88; RESP 15
--- NOTE | 2018-04-18 07:40 | CDI ---
Documentation Clarification Form Date: 04/18/18 From: Aleisha Darling Phone: If questions, call Miryam Krause @ Admit Date: 04/11/2018 12:38:00 AM Patient Name: Francy Dixon Visit Number: [id number] Discharge Date:04/16/18 ATTENTION: The Clinical Documentation Specialists (CDI) and [facility] Coding Staff appreciate your assistance in clarifying documentation. Please respond to the clarification below the line at the bottom and electronically sign. The CDI & [facility] Coding staff will review the response and follow-up if needed. Please note: Queries are made part of the Legal Health Record. If you have any questions, please contact the author of this message via ITS. Sheet: Chronic kidney disease is noted on Xray report dated 04/14. ED note stated elevated BUN and creatinine which does seem to be chronic for the patient. History/Risk Factors: Family history of renal disease, dehydrated on admission Patients baseline CR: 1.36, BUN 26 Clinical Indicators: BUN/Cr/GFR : 1.62 on 04/14, BUN 33 , GFR 30-41 Treatment: IV Fluids In order to capture the severity of condition, please clarify if the condition signifies: Acute renal failure, Please specify etiology (if known): Cortical Necrosis Medullary Necrosis Tubular Necrosis Acute kidney injury Acute on chronic renal failure CKD Stage 1 GFR >90 CKD Stage 2 GFR 60-89 CKD Stage 3 GFR 30-59 CKD Stage 4 GFR 15-29 CKD Stage 5 GFR <15 Other, please specify Unable to determine CKD Stage 3 GFR 30-59 MTDD
== END 2018-04-16 16:24 | DRG 372 ==
LOC: EC 20:07 → 3SCARD 04-11 00:38 → 4MS4W 04-14 18:15
PROVIDERS: ADMIT Hospitalist; ATTEND Hospitalist
DX: A04.72 Enterocolitis due to Clostridium difficile, not specified as recurrent (principal); I24.9 Acute ischemic heart disease, unspecified; N39.0 Urinary tract infection, site not specified; R19.5 Other fecal abnormalities; E86.0 Dehydration; K21.9 Gastro-esophageal reflux disease without esophagitis; H54.8 Legal blindness, as defined in USA; G89.29 Other chronic pain; F03.90 Unspecified dementia, unspecified severity, without behavioral disturbance, psychotic disturbance, mood disturbance, and anxiety; E78.5 Hyperlipidemia, unspecified; Z86.73 Personal history of transient ischemic attack (TIA), and cerebral infarction without residual deficits; J44.9 Chronic obstructive pulmonary disease, unspecified; H35.30 Unspecified macular degeneration; M10.9 Gout, unspecified; E03.9 Hypothyroidism, unspecified; Z87.11 Personal history of peptic ulcer disease; H40.9 Unspecified glaucoma; J30.9 Allergic rhinitis, unspecified; Z90.710 Acquired absence of both cervix and uterus; Z90.49 Acquired absence of other specified parts of digestive tract; Z84.1 Family history of disorders of kidney and ureter; Z83.49 Family history of other endocrine, nutritional and metabolic diseases; Z79.02 Long term (current) use of antithrombotics/antiplatelets; Z79.2 Long term (current) use of antibiotics; Z79.890 Hormone replacement therapy; Z79.891 Long term (current) use of opiate analgesic; Z79.899 Other long term (current) drug therapy; Z88.1 Allergy status to other antibiotic agents; Z88.2 Allergy status to sulfonamides; R29.6 Repeated falls; H91.90 Unspecified hearing loss, unspecified ear; M85.80 Other specified disorders of bone density and structure, unspecified site; Z88.0 Allergy status to penicillin; Z79.82 Long term (current) use of aspirin; I95.9 Hypotension, unspecified; B96.89 Other specified bacterial agents as the cause of diseases classified elsewhere; D64.9 Anemia, unspecified; M54.5 Low back pain; I12.9 Hypertensive chronic kidney disease with stage 1 through stage 4 chronic kidney disease, or unspecified chronic kidney disease; N18.3 Chronic kidney disease, stage 3 (moderate)
CPT/HCPCS: 36415; 70450; 71046; 72110; 72125; 73502; 74018; 78582; 80048; 80053; 80061; 81001; 82272; 82550; 82553; 82607; 82728; 83540; 83550; 83880; 84484; 85025; 85027; 85379; 85610; 85730; 87077; 87086; 87186; 87324; 93005; 93306; 96360; 96361; 96365; 96366; 96375; 96376; 99285